=== PATIENT | male | born 1945 | race Caucasian/White ===

== ENCOUNTER 2018-11-02 08:04 | Day surgery (SDC) | payer OTHER ==
[~2018-11-02] VITALS: Ht 170.2 cm; Wt 65.0 kg
[~2018-11-02 08:04] MED LIST: ACET325 PO; ALBU4 PO; ALEN70 PO; ASCO500 PO; ASPI81CH; ASPI81CH PO; ATEN25; ATOR20; ATOR40TA PO; BUDE6HFA; BUDE6HFA INH; CALCIUM + D3 E1 EACH PO; CHOL10002 PO; CYAN500 PO; D3-20002000 UNIT; METO25 PO; ONDA4 PO; OXYB5 PO; OXYC5 PO; Omeprazole20 M1; Omeprazole20 M1 PO; Pulmicort Flex90 MCG; Pyridium200 MG PO; Super Calcium600 MG; TIOT18; TIOT18 INH; Ventolin Soln3 ML INH; Ventolin5 MG/1 ML INH; WARF2; WARF3; WARF5 PO; WARF7.5 PO; XARELTO20 MG
[2018-11-02] MEDS ORDERED: TIOT18 (08:50)
--- NOTE | 2018-11-02 11:03 | NUR ---
11/02/18 1103 Nahomi Grace V INJECTED 9CC NS INTO 12MM POLYP.
== END 2018-11-02 11:47 | disposition home or self-care (01) ==
LOC: ORSCSDS 08:04
PROVIDERS: Internal Medicine Gastroenterology
PROC: 0DBL8ZX Excision of Transverse Colon, Via Natural or Artificial Opening Endoscopic, Diagnostic (ICD-10-PCS; principal; 2018-11-02 09:45)
DX: Z85.048 Personal history of other malignant neoplasm of rectum, rectosigmoid junction, and anus (principal); D12.3 Benign neoplasm of transverse colon; K57.30 Diverticulosis of large intestine without perforation or abscess without bleeding; Z93.3 Colostomy status; Z86.010 Personal history of colon polyps; I10 Essential (primary) hypertension; E78.5 Hyperlipidemia, unspecified; J44.9 Chronic obstructive pulmonary disease, unspecified; I48.91 Unspecified atrial fibrillation; F17.210 Nicotine dependence, cigarettes, uncomplicated; I25.10 Atherosclerotic heart disease of native coronary artery without angina pectoris; Z95.1 Presence of aortocoronary bypass graft; Z79.01 Long term (current) use of anticoagulants; Z79.82 Long term (current) use of aspirin; Z79.899 Other long term (current) drug therapy
CPT/HCPCS: 88305; J2704; J7120

== ENCOUNTER 2018-12-08 18:37 | Emergency (ER) | payer OTHER ==
[~2018-12-08] VITALS: Ht 167.6 cm; Wt 67.6 kg
[~2018-12-08 18:37] MED LIST changes: -ACET325 PO; -ASCO500 PO; -ASPI81CH PO; -ATOR40TA PO; -BUDE6HFA INH; -CALCIUM + D3 E1 EACH PO; -CHOL10002 PO; -CYAN500 PO; -METO25 PO; -Ventolin5 MG/1 ML INH; -XARELTO20 MG
[2018-12-08 19:44] LABS: BASOPHILS ABSOLUTE AUTO 0.03 K/mm3 (0.00-0.23); BASOPHILS PERCENT AUTO 0 % (0-2); EOSINOPHILS ABSOLUTE AUTO 0.22 K/mm3 (0.00-0.68); EOSINOPHILS PERCENT AUTO 2 % (0-6); Hematocrit 28.7 % (37.0-53.0); Hemoglobin 8.6 g/dL (13.5-17.5); IMMATURE GRAN ABSOLUTE AUTO 0.09 K/mm3 (0.00-0.10); IMMATURE GRAN PERCENT AUTO 1 % (0-1); LYMPHOCYTES ABSOLUTE AUTO 1.48 K/mm3 (0.84-5.20); LYMPHOCYTES PERCENT AUTO 13 % (21-46); MONOCYTES ABSOLUTE AUTO 0.75 K/mm3 (0.16-1.47); MONOCYTES PERCENT AUTO 7 % (4-13); Mean Corpuscular HGB 22.5 pg (26.0-34.0); Mean Corpuscular Volume 75 fL (80-100); Mean Platelet Volume 9.8 fL (9.1-12.4); NEUTROPHILS ABSOLUTE AUTO 8.77 K/mm3 (1.96-9.15); NEUTROPHILS PERCENT AUTO 77 % (41-73); Platelet Count 398 K/mm3 (150-400); RDW Coefficient Variation 17.5 % (11.7-14.2); RDW Standard Deviation 46.8 fL (35.1-46.3); Red Blood Cell Count 3.82 M/mm3 (4.30-5.90); White Blood Cell Count 11.34 K/mm3 (4.00-11.30)
[2018-12-08 20:11] LABS: Alanine Aminotransfer (ALT/SGP 12 U/L (12-78); Albumin, Blood 2.9 g/dL (3.4-5.0); Albumin/Globulin Ratio 0.7 (0.8-1.8); Alk Phos 75 U/L (50-136); Anion Gap 12 mmol/L (6-16); Aspartate Aminotrans (AST/SGOT 21 U/L (12-37); Bilirubin, Total 0.5 mg/dL (0.1-1.0); Blood Urea Nitrogen 8 mg/dL (8-24); Bun/Creatinine Ratio 10.5 (12.0-20.0); CO2, Blood 23 mmol/L (21-32); Calcium, Blood 8.4 mg/dL (8.5-10.1); Chloride, Blood 89 mmol/L (98-108); Creatinine, Blood 0.76 mg/dL (0.60-1.20); Globulin, Blood 4.1 g/dL (2.2-4.0); Glomerular Filtration Rate >60 (60-); Glucose, Blood 81 mg/dL (70-99); Potassium, Blood 3.7 mmol/L (3.5-5.5); Sodium, Blood 124 mmol/L (136-145); Troponin I 0.335 ng/mL (0.000-0.040)
[2018-12-08] MEDS ORDERED: CEPH500 PO (21:43)
== END 2018-12-08 21:53 | disposition home or self-care (01) ==
LOC: ER 18:37
PROVIDERS: Emergency Medicine
DX: N39.0 Urinary tract infection, site not specified (principal); D64.9 Anemia, unspecified; K92.2 Gastrointestinal hemorrhage, unspecified; E87.1 Hypo-osmolality and hyponatremia; F17.200 Nicotine dependence, unspecified, uncomplicated; Z88.2 Allergy status to sulfonamides; Z88.0 Allergy status to penicillin; Z79.82 Long term (current) use of aspirin; Z79.899 Other long term (current) drug therapy
CPT/HCPCS: 36415; 71046; 80053; 82272; 83880; 84484; 85025; 86850; 86900; 86901; 86923; 93005; 93010; 99284-25

== ENCOUNTER 2018-12-09 20:37 | Inpatient (IN) | payer MEDICARE ==
[~2018-12-09] VITALS: Ht 167.6 cm; Wt 61.6 kg
[~2018-12-09 20:37] MED LIST changes: +CEPH500 PO
[2018-12-09 21:10] LABS: BASOPHILS ABSOLUTE AUTO 0.01 K/mm3 (0.00-0.23); BASOPHILS PERCENT AUTO 0 % (0-2); EOSINOPHILS ABSOLUTE AUTO 0.02 K/mm3 (0.00-0.68); EOSINOPHILS PERCENT AUTO 0 % (0-6); Hematocrit 26.5 % (37.0-53.0); Hemoglobin 7.9 g/dL (13.5-17.5); IMMATURE GRAN ABSOLUTE AUTO 0.17 K/mm3 (0.00-0.10); IMMATURE GRAN PERCENT AUTO 2 % (0-1); LYMPHOCYTES ABSOLUTE AUTO 0.77 K/mm3 (0.84-5.20); LYMPHOCYTES PERCENT AUTO 8 % (21-46); MONOCYTES ABSOLUTE AUTO 0.53 K/mm3 (0.16-1.47); MONOCYTES PERCENT AUTO 5 % (4-13); Mean Corpuscular HGB Conc 29.8 g/dL (31.5-36.5); Mean Corpuscular Volume 77 fL (80-100); Mean Platelet Volume 9.8 fL (9.1-12.4); NEUTROPHILS ABSOLUTE AUTO 8.76 K/mm3 (1.96-9.15); NEUTROPHILS PERCENT AUTO 85 % (41-73); Platelet Count 375 K/mm3 (150-400); RDW Coefficient Variation 17.4 % (11.7-14.2); RDW Standard Deviation 48.9 fL (35.1-46.3); Red Blood Cell Count 3.43 M/mm3 (4.30-5.90); White Blood Cell Count 10.26 K/mm3 (4.00-11.30)
[2018-12-09 21:25] LABS: Albumin, Blood 2.7 g/dL (3.4-5.0); Albumin/Globulin Ratio 0.7 (0.8-1.8); Bilirubin, Total 0.5 mg/dL (0.1-1.0); Bun/Creatinine Ratio 14.3 (12.0-20.0); Calcium, Blood 7.9 mg/dL (8.5-10.1); Creatinine, Blood 1.26 mg/dL (0.60-1.20); Globulin, Blood 3.8 g/dL (2.2-4.0); Potassium, Blood 4.1 mmol/L (3.5-5.5); Total Protein, Blood 6.5 g/dL (6.4-8.2); Troponin I 0.193 ng/mL (0.000-0.040)
[2018-12-10 00:15] LABS: Source, Urine Clean Catch
[2018-12-10 00:19] LABS: Appearance, Urine Clear (Clear); Bilirubin, Urine Neg (Neg); Blood, Urine Neg (Neg); Color, Urine Amber (P-Yellow); Glucose Qualitative, Urine Neg (Neg); Ketones, Urine 2+ (Neg); Leukocyte Esterase, Urine 1+ (Neg); Nitrite, Urine Neg (Neg); Protein, Urine 2+ (Neg); Urobilinogen, Urine NORM (Normal)
[2018-12-10 00:25] LABS: Bacteria Many /hpf; Red Blood Cells, Urine 0-2 /hpf (0-2); Squamous Epithelial Cells Few /hpf (Few)
[2018-12-10 00:26] LABS: Hyaline Casts 0-2 /lpf (0-2)
[2018-12-10 02:43] LABS: BASOPHILS ABSOLUTE AUTO 0.02 K/mm3 (0.00-0.23); BASOPHILS PERCENT AUTO 0 % (0-2); EOSINOPHILS ABSOLUTE AUTO 0.07 K/mm3 (0.00-0.68); EOSINOPHILS PERCENT AUTO 1 % (0-6); Hematocrit 24.5 % (37.0-53.0); Hemoglobin 7.3 g/dL (13.5-17.5); IMMATURE GRAN ABSOLUTE AUTO 0.08 K/mm3 (0.00-0.10); IMMATURE GRAN PERCENT AUTO 1 % (0-1); LYMPHOCYTES ABSOLUTE AUTO 1.45 K/mm3 (0.84-5.20); LYMPHOCYTES PERCENT AUTO 16 % (21-46); MONOCYTES PERCENT AUTO 8 % (4-13); Mean Corpuscular HGB 22.9 pg (26.0-34.0); Mean Corpuscular HGB Conc 29.8 g/dL (31.5-36.5); Mean Corpuscular Volume 77 fL (80-100); Mean Platelet Volume 9.7 fL (9.1-12.4); NEUTROPHILS ABSOLUTE AUTO 6.86 K/mm3 (1.96-9.15); NEUTROPHILS PERCENT AUTO 75 % (41-73); Platelet Count 340 K/mm3 (150-400); RDW Coefficient Variation 17.4 % (11.7-14.2); RDW Standard Deviation 48.8 fL (35.1-46.3); Red Blood Cell Count 3.19 M/mm3 (4.30-5.90); White Blood Cell Count 9.18 K/mm3 (4.00-11.30)
[2018-12-10 03:10] LABS: Anion Gap 10 mmol/L (6-16); Blood Urea Nitrogen 16 mg/dL (8-24); Bun/Creatinine Ratio 15.1 (12.0-20.0); CO2, Blood 22 mmol/L (21-32); Calcium, Blood 7.7 mg/dL (8.5-10.1); Chloride, Blood 98 mmol/L (98-108); Creatinine, Blood 1.06 mg/dL (0.60-1.20); Glomerular Filtration Rate >60 (60-); Glucose, Blood 83 mg/dL (70-99); Potassium, Blood 4.2 mmol/L (3.5-5.5); Sodium, Blood 130 mmol/L (136-145)
--- NOTE | 2018-12-10 04:55 | NUR ---
SASH ASSEMBLER SUMMARY NEW ADMIT FROM THE ED TONIGHT. PT AAOX4 AND PLEASANT. PT REPORTS HAVING A FEW SYNCOPAL EPISODES WHILE ON A CAMPING TRIP BEFORE COMING TO THE HOSPITAL. PT NOT WANTING TO AMBULATE AT ALL, STATING "I'VE HAD SOME BALANCE ISSUES FOR SEVERAL DAYS NOW". PLACED ON TELE, SR 70'S WITH A 1ST DEG BLOCK PER PATTERN DESIGNER. PT SBP 80-90'S, THERE IS CONCERN THAT THIS IS CAUSED BY A RECENT INCREASE IN THE PT'S METOPROLOL DOSE MADE BY HIS PCP. SKIN DRY IN AREAS, ESPECIALLY HIS BLE. PT REPORTS HAVING PSORIASIS. NO WOUNDS NOTED BY THIS RN, HOWEVER PT WOULD ONLY ALLOW A LIMITED ASSESSMENT OF HIS SKIN. PT STATED "THEY CHECKED ALL THIS DOWN IN THE ER, I JUST WANT TO GET SOME SLEEP TONIGHT". PT HAS COLOSTOMY BAG THAT HE MANAGES HIMSELF. ASIDE FROM BP, OTHER VSS. DR OJEDA IS AWARE OF BP. WILL CONTINUE TO MONITOR.
[2018-12-10 10:36] LABS: Hematocrit 25.6 % (37.0-53.0); Hemoglobin 7.6 g/dL (13.5-17.5)
--- NOTE | 2018-12-10 10:42 | NUR ---
PT FOOT PAIN/LOW H&H DR. MARTINEZ CALLED FOR PAIN MEDICATION PER PT REQUEST DUE TO 8/[address] MARTINEZ ORDERED ULTRAM. ALSO ORDERED STAT H&H LABS DUE TO LOW LEVELS. 1030 RESULTS SHOWED HGB 7.6. NOTIFIED. DR. MARTINEZ INSTRUCTED TO CONTINUE TO WATCH FOR POSSIBLE BLACK STOOLS & SEND SAMPLE WHEN AVAILABLE. NO OTHER CHANGES IN ASSESSMENT AT THIS TIME.
[2018-12-10 11:07] LABS: Percent Saturation 8.3 % (20.0-50.0)
--- NOTE | 2018-12-10 14:36 | NUR ---
OSTOMY CHANGED OSTOMY DEVICE CHANGED. SKIN CLEAN & INTACT.
--- NOTE | 2018-12-10 17:55 | NUR ---
SHIFT SUMMARY NO CHANGES IN ASSESSMENT AT THIS TIME. PT CURRENTLY RECEIVING 1 UNIT OF PRBC. TOLERATING WELL. PT HAD ECHOCARDIOGRAM & CAROTID DUPLEX COMPLETED TODAY. PT SEEN BY TWIST MAKER DR. CHURCHILL THIS EVENING. DR. CHURCHILL STATED HE WOULD CHECK IN WITH PT TOMORROW. WILL CONTINUE TO MONITOR UNTIL TURNOVER IS COMPLETE. VSS.
--- NOTE | 2018-12-10 23:37 | NUR ---
CHANGE IN RHYTHM/RATE *LATE ENTRY* PCU RECEIVING OPERATOR CALLED AROUND 2049 TO NOTIFY ME PT HAD A 4.5 SEC PAUSE @2037. HOSPITALIST DAMASO WAS NOTIFIED & INFORMED ME TO PASS INFO TO ONCOMING DAY SHIFT NURSE TO CALL CANNONEER & INFORM THEM OF PAUSE. WILL CONTINUE TO MONITOR PT.
--- NOTE | 2018-12-11 00:57 | NUR ---
CHANGE IN RHYTHM/RATE NOTIFIED @0024 BY PCU UTILIZATION MANAGEMENT UM NURSE THAT PT HAD A 5.2 SEC PAUSE, TELE UTILIZATION MANAGEMENT UM NURSE STATED BEFORE & AFTER PAUSE PT RHYTHM WAS NSR W/PAC'S & HR IN THE 80'S. ASSESSED PT & HE WAS ASYMPTOMATIC, JUST REPORTED PAIN IN R. FOOT. NOTIFIED DR. OJEDA THIS WAS PTS 2ND PAUSE OF NIGHT & NO NEW ORDERS GIVEN, JUST INFORMED TO MONITOR PT.
[2018-12-11 05:37] LABS: BASOPHILS ABSOLUTE AUTO 0.05 K/mm3 (0.00-0.23); BASOPHILS PERCENT AUTO 1 % (0-2); EOSINOPHILS ABSOLUTE AUTO 0.11 K/mm3 (0.00-0.68); EOSINOPHILS PERCENT AUTO 1 % (0-6); Hematocrit 27.2 % (37.0-53.0); Hemoglobin 8.4 g/dL (13.5-17.5); IMMATURE GRAN ABSOLUTE AUTO 0.06 K/mm3 (0.00-0.10); IMMATURE GRAN PERCENT AUTO 1 % (0-1); LYMPHOCYTES ABSOLUTE AUTO 1.52 K/mm3 (0.84-5.20); LYMPHOCYTES PERCENT AUTO 14 % (21-46); MONOCYTES ABSOLUTE AUTO 0.72 K/mm3 (0.16-1.47); MONOCYTES PERCENT AUTO 7 % (4-13); Mean Corpuscular HGB 24.1 pg (26.0-34.0); Mean Corpuscular HGB Conc 30.9 g/dL (31.5-36.5); Mean Corpuscular Volume 78 fL (80-100); Mean Platelet Volume 9.7 fL (9.1-12.4); NEUTROPHILS PERCENT AUTO 78 % (41-73); Platelet Count 388 K/mm3 (150-400); RDW Coefficient Variation 17.4 % (11.7-14.2); RDW Standard Deviation 49.1 fL (35.1-46.3); Red Blood Cell Count 3.49 M/mm3 (4.30-5.90); White Blood Cell Count 10.96 K/mm3 (4.00-11.30)
[2018-12-11 06:02] LABS: Cholesterol 86 mg/dL (50-200); HDL Cholesterol 29 mg/dL (>39); LDL/HDL RATIO 1.2; Low Density Lipoprotein Chol 34 mg/dL (0-110); Triglycerides 113 mg/dL (30-160); Very Low Density Lipoprot Chol 22 mg/dL (6-32)
--- NOTE | 2018-12-11 06:33 | NUR ---
SHIFT SUMMARY PT SLEPT WELL T/O NIGHT. AOX4. VSS. DENIES N/V/D. REPORTS CONSTANT SHARP PAIN IN BILATERAL FEET, STATES IT'S FROM FALL, MEDICATED 1X W/TYLENOL & 1X W/ULTRAM PER ORDERS. RECIEVED 1U PRBC LAST NIGHT, NO REACTIONS NOTICED. PER PCU DATA WAREHOUSE SPECIALIST, PT HAD 2 RHYTHM PAUSES, READ PREVIOUS NOTES. DENIES ANY CHEST PAIN OR PALPATIONS. HAS BEEN ON BEDREST, CONTINENT OF URINE & COLOSTOMY IS INTACT & DRAINING FORMED BROWN STOOL. CALL LIGHT IN REACH, YET PT YELLS OUT IF HE NEEDS HELP W/SOMETHING.
[2018-12-11 12:48] LABS: Stool Occult Blood Guaiac 1 Neg (Neg)
[2018-12-11] MEDS ORDERED: CEPH500 PO (15:08)
--- NOTE | 2018-12-11 16:24 | NUR ---
PATIENT DISCHARGE THE PATIENT WAS DISCHARGED HOME WITH HIS FAMILY, AFTER DISCHARGE INSTRUCTIONS WERE GIVEN TO THE PATIENT. THE WAS INSTRUCTED TO FOLLOW UP WITH HIS V/A DOCTOR AND TO AUDIT CLERK HIS MEDICATIONS. THE PATIENT LEFT THE HOSPITAL WITHOUT CONCERN OR COMPLAINT.
== END 2018-12-11 16:00 | disposition home or self-care (01) | DRG 68 ==
LOC: ER 20:37 → MEDS 20:38 → ENPENDDIS 12-11 14:36 → MEDS 12-11 16:00
PROVIDERS: Emergency Medicine; Family Medicine; Nurse Practitioner Acute Care; ADMIT Hospitalist
PROC: 30233N1 Transfusion of Nonautologous Red Blood Cells into Peripheral Vein, Percutaneous Approach (ICD-10-PCS; principal; 2018-12-10)
DX: I65.23 Occlusion and stenosis of bilateral carotid arteries (principal); I67.81 Acute cerebrovascular insufficiency; E87.1 Hypo-osmolality and hyponatremia; R55 Syncope and collapse; D50.9 Iron deficiency anemia, unspecified; R79.89 Other specified abnormal findings of blood chemistry; F17.210 Nicotine dependence, cigarettes, uncomplicated; I48.91 Unspecified atrial fibrillation; I95.9 Hypotension, unspecified; J44.9 Chronic obstructive pulmonary disease, unspecified; I25.10 Atherosclerotic heart disease of native coronary artery without angina pectoris; Z95.1 Presence of aortocoronary bypass graft; Z85.038 Personal history of other malignant neoplasm of large intestine; Z93.3 Colostomy status; Z79.82 Long term (current) use of aspirin
CPT/HCPCS: 36415; 36430; 70450; 71045; 80048; 80053; 80061; 81001; 82272; 82607; 82728; 82746; 83540; 83550; 83605; 84484; 85014; 85018; 85025; 86850; 86900; 86901; 86923; 87040; 87086; 93005; 93010; 93306; 93880; 94640; 94760; 96365; 99285-25; A9270; G0378; J0696; J7030; J7040; P9016

== ENCOUNTER 2019-01-17 17:27 | Inpatient (IN) | payer OTHER, MEDICARE ==
[~2019-01-17] VITALS: Ht 165.1 cm; Wt 57.5 kg
[2019-01-17] MEDS ORDERED: Calcium Carbon650 MG PO (17:47)
[2019-01-17] MEDS ORDERED: CYAN500 PO (17:48)
[2019-01-17] MEDS ORDERED: Aspirin EC81 MG PO (17:48)
[2019-01-17] MEDS ORDERED: CHOL10002 PO (17:48)
[2019-01-17] MEDS ORDERED: BUDE6HFA INH (17:49)
[2019-01-17] MEDS ORDERED: ATOR40TA PO (17:49)
[2019-01-17] MEDS ORDERED: METO50ER PO (17:50)
[2019-01-17] MEDS ORDERED: ASCO500 PO (17:50)
[2019-01-17] MEDS ORDERED: XARELTO1 EACH PO (17:51)
[2019-01-17] MEDS ORDERED: ALBU2.5V5 NEB (17:51)
[2019-01-17] MEDS ORDERED: ACET325 PO (17:51)
[2019-01-17] MEDS ORDERED: TIOT18 INH (17:52)
[2019-01-17] MEDS ORDERED: Ferrous Sulfat325 M2 PO (17:53)
[2019-01-17] MEDS ORDERED: ALBU90OI61 INH (17:54)
[2019-01-17 17:55] LABS: BASOPHILS ABSOLUTE AUTO 0.01 K/mm3 (0.00-0.23); BASOPHILS PERCENT AUTO 0 % (0-2); EOSINOPHILS ABSOLUTE AUTO 0.07 K/mm3 (0.00-0.68); EOSINOPHILS PERCENT AUTO 1 % (0-6); Hematocrit 22.5 % (37.0-53.0); Hemoglobin 6.6 g/dL (13.5-17.5); IMMATURE GRAN ABSOLUTE AUTO 0.04 K/mm3 (0.00-0.10); IMMATURE GRAN PERCENT AUTO 1 % (0-1); LYMPHOCYTES ABSOLUTE AUTO 1.11 K/mm3 (0.84-5.20); LYMPHOCYTES PERCENT AUTO 17 % (21-46); MONOCYTES ABSOLUTE AUTO 0.54 K/mm3 (0.16-1.47); MONOCYTES PERCENT AUTO 8 % (4-13); Mean Corpuscular HGB 24.4 pg (26.0-34.0); Mean Corpuscular HGB Conc 29.3 g/dL (31.5-36.5); Mean Corpuscular Volume 83 fL (80-100); Mean Platelet Volume 9.3 fL (9.1-12.4); NEUTROPHILS ABSOLUTE AUTO 4.97 K/mm3 (1.96-9.15); NEUTROPHILS PERCENT AUTO 74 % (41-73); Platelet Count 288 K/mm3 (150-400); RDW Coefficient Variation 23.9 % (11.7-14.2); RDW Standard Deviation 71.8 fL (35.1-46.3); Red Blood Cell Count 2.71 M/mm3 (4.30-5.90); White Blood Cell Count 6.74 K/mm3 (4.00-11.30)
[2019-01-17] MEDS ORDERED: LISI5 PO (17:55)
[2019-01-17] MEDS ORDERED: MIRT15 PO (17:55)
[2019-01-17] MEDS ORDERED: LIDO700A20 TOP (17:56)
[2019-01-17] MEDS ORDERED: TAMS.4ER PO (17:56)
[2019-01-17] MEDS ORDERED: ANTI-ITCH LOTI222 ML TOP (17:57)
[2019-01-17] MEDS ORDERED: TRAM50 PO (17:58)
[2019-01-17 18:05] LABS: Calcium, Ionized (POC) 1.09 mmol/L (1.10-1.46); Chloride (POC) 100 mmol/L (98-108); Creatinine (POC) 0.6 mg/dL (0.8-1.3); Glucose (ISTAT POC) 92 mg/dL (70-99); Hemoglobin (POC) 7.1 g/dL (13.5-17.5); Potassium (POC) 4.3 mmol/L (3.5-5.5); Sodium (POC) 132 mmol/L (135-148); Total CO2 (POC) 20 mmol/L (21-32)
[2019-01-17 18:17] LABS: Alanine Aminotransfer (ALT/SGP 8 U/L (12-78); Albumin, Blood 1.9 g/dL (3.4-5.0); Albumin/Globulin Ratio 0.7 (0.8-1.8); Alk Phos 52 U/L (50-136); Anion Gap 4 mmol/L (6-16); Aspartate Aminotrans (AST/SGOT 9 U/L (12-37); Bilirubin, Total 0.2 mg/dL (0.1-1.0); Blood Urea Nitrogen 13 mg/dL (8-24); Bun/Creatinine Ratio 19.5 (12.0-20.0); CO2, Blood 25 mmol/L (21-32); Calcium, Blood 7.2 mg/dL (8.5-10.1); Chloride, Blood 107 mmol/L (98-108); Creatinine, Blood 0.67 mg/dL (0.60-1.20); Globulin, Blood 2.7 g/dL (2.2-4.0); Glomerular Filtration Rate >60 (60-); Glucose, Blood 95 mg/dL (70-99); Potassium, Blood 4.3 mmol/L (3.5-5.5); Sodium, Blood 136 mmol/L (136-145); Total Protein, Blood 4.6 g/dL (6.4-8.2)
[2019-01-17 19:13] LABS: Hematocrit 21.9 % (37.0-53.0); Hemoglobin 6.5 g/dL (13.5-17.5)
[2019-01-17 19:27] LABS: International Normalized Ratio 1.06; Prothrombin Time Results 11.2 Sec (9.7-11.5)
--- NOTE | 2019-01-17 19:40 | NUR ---
SHIFT ASSESSMENT: PT TRANSFERRED FROM PCU TO ICU16 VIA BED WITH 2 RN'S AT BEDSIDE. PT A&O X3. DENIES ANY PAIN. C/O BEING HUNGRY. LS COARSE WITH CRACKLES T/O THAT CLEARS UP WITH A COUGH. PT HAS PRODUCTIVE COUGH, BUT SWALLOWS IT. BIOX 100% ON 2L N/C. HEART SOUNDS S1 AND S2 AUSCULTATED WITH MONITOR SHOWING NSR WITH HR 82. SKIN PALE, WARM AND DRY. PPP BILAT AT 1+ AND DP 1+ BILAT. L TEAROOM HOST FROM PREVIOS INJURY. RADIAL PULSES 2+ BILAT. 20G IV RFA WITH PRBC'S RUNNING AT 125CC/HR. 20G LAC FIELD START WITH PROTONIX RUNNING AT 10CC/HR=8MG/HR. ABD R/S WITH HYPER BT X4. LUQ COLOSTOMY WITH DARK BLACK TARRY STOOL. COLOSTOMY DRESSING AND APPLIANCE CHANGED. MUCOUSY BROWN PER RECTUM. PT STATES THAT THE MUCOUS IS NEW OF YESTERDAY. VOIDS PER UNRINAL. VSS.
--- NOTE | 2019-01-17 22:14 | NUR ---
DR. ANGEL ORTIZ IN TO SEE PT. DR. ORTIZ IS PLANNING ON SCOPING TOMORROW LATE AFTERNOON. ORDERS TO KEEP PT FULL LIQUID DIET TILL AFTER BREAKFAST, THEN CHANGE HIM TO WATER ONLY TILL 1400. AT 1400, HE WILL BE NPO.
[2019-01-17] MEDS ORDERED: OMEP20ER PO (22:31)
--- NOTE | 2019-01-18 01:16 | NUR ---
SYNCOPAL EPISODE: PT LYING IN BED UNRESPOSIVE. BP 50'S/30'S, HR 74. STERNAL RUB DONE AND ARROYO VOICE TO YELL AT PT. AFTER ABOUT 45 SECONDS, PT FINALLY GRUMBLED "WHAT AT ME". ASKED PT HOW HE FEELS, HE STATES HE FEELS WEAK. COLOSTOMY PUT OUT 325 OF CLOTTED MAROON STOOL. FLUID BOLUS GIVEN. PT MORE RESPONSIVE. LAB COMING TO DRAW BLOOD.
[2019-01-18 01:39] LABS: Hematocrit 19.6 % (37.0-53.0)
--- NOTE | 2019-01-18 05:48 | NUR ---
SHIFT SUMMARY: PT HAS REQUIRED 4 UNITS PRBS THROUGHOUT THE NIGHT, HAS HAD >1500CC LIQUID MAROON STOOL FROM COLOSTMY. DR. ORTIZ IS AWARE AND PLANS ON SCOPING PT AT 0730 THIS AM. PT HAD A HYPOTENSIVE/SYCOPAL EPISODE EARLIER IN THE SHIFT. A FLUID BOLUS WAS GIVEN WITH GOOD RESPONSE.
[2019-01-18 06:51] LABS: BASOPHILS ABSOLUTE AUTO 0.01 K/mm3 (0.00-0.23); BASOPHILS PERCENT AUTO 0 % (0-2); EOSINOPHILS ABSOLUTE AUTO 0.04 K/mm3 (0.00-0.68); EOSINOPHILS PERCENT AUTO 1 % (0-6); Hematocrit 18.5 % (37.0-53.0); IMMATURE GRAN ABSOLUTE AUTO 0.04 K/mm3 (0.00-0.10); IMMATURE GRAN PERCENT AUTO 1 % (0-1); LYMPHOCYTES ABSOLUTE AUTO 1.57 K/mm3 (0.84-5.20); LYMPHOCYTES PERCENT AUTO 24 % (21-46); MONOCYTES ABSOLUTE AUTO 0.58 K/mm3 (0.16-1.47); MONOCYTES PERCENT AUTO 9 % (4-13); Mean Corpuscular HGB 28.4 pg (26.0-34.0); Mean Corpuscular HGB Conc 32.4 g/dL (31.5-36.5); Mean Platelet Volume 9.5 fL (9.1-12.4); NEUTROPHILS ABSOLUTE AUTO 4.39 K/mm3 (1.96-9.15); NEUTROPHILS PERCENT AUTO 66 % (41-73); Platelet Count 161 K/mm3 (150-400); RDW Coefficient Variation 18.3 % (11.7-14.2); RDW Standard Deviation 58.9 fL (35.1-46.3); Red Blood Cell Count 2.11 M/mm3 (4.30-5.90); White Blood Cell Count 6.63 K/mm3 (4.00-11.30)
[2019-01-18 06:57] LABS: Mean Corpuscular Volume 88 fL (80-100)
[2019-01-18 07:17] LABS: Anion Gap 8 mmol/L (6-16); Blood Urea Nitrogen 16 mg/dL (8-24); Bun/Creatinine Ratio 23.3 (12.0-20.0); CO2, Blood 19 mmol/L (21-32); Calcium, Blood 5.6 mg/dL (8.5-10.1); Chloride, Blood 114 mmol/L (98-108); Creatinine, Blood 0.69 mg/dL (0.60-1.20); Glomerular Filtration Rate >60 (60-); Glucose, Blood 112 mg/dL (70-99); Potassium, Blood 4.3 mmol/L (3.5-5.5); Sodium, Blood 141 mmol/L (136-145)
--- NOTE | 2019-01-18 07:30 | NUR ---
BEGINNING OF SHIFT Assumed care of pt at 0700 with Karis CALIX. Bedside report received from Adilene CALIX. Pt drowsy, arouses easily to verbal stimulus. A&O x 2. Able to follow directions. SpO2 90% or greater, [address] Sinus rhtyhm with PACs and PVCs. Rate 78 with approx 8 PVCs per minute. Hypotensive. NS bolus infusing. Results of 0632 blood draw notified to Dr Lin at 0705. Orders received for 2 units PRBCs. Critical calcium notified to Dr Sims at 0720, provider updated on pt condition. Orders received for IV calcium gluconate and melt supervisor consult. Dr Sims at bedside at 0725. This RN called Dr Brewer at 0725 to notify of consult. Provider states she will be in to see pt shortly. NS bolus complete at 0730. SBP 75-85, DBP 35-45. Orders receivied for additional bolus from Dr Sims. Awaiting blood from blood bank. Karis CALIX at bedside for PICC placement. Day surgery staff in room preparing for endoscopy.
--- NOTE | 2019-01-18 07:40 | NUR ---
CENTRAL LINE Unable to obtain PICC line access. Dr Sims aware. Provider at bedside for central line placement.
--- NOTE | 2019-01-18 08:00 | NUR ---
DR BREWER AT BEDSIDE Dr Brewer at bedside at [address] Cordis central line. Provider states plan for mass transfusion. Dr Brewer aware that levophed has not been started. Plan for BP to increase with transfusion. Verbal order to stop NS bolus. Pt has received about [address] Sims remains at bedside.
[2019-01-18 09:02] LABS: BASOPHILS ABSOLUTE AUTO 0.05 K/mm3 (0.00-0.23); BASOPHILS PERCENT AUTO 0 % (0-2); EOSINOPHILS ABSOLUTE AUTO 0.02 K/mm3 (0.00-0.68); EOSINOPHILS PERCENT AUTO 0 % (0-6); Hematocrit 33.7 % (37.0-53.0); Hemoglobin 11.1 g/dL (13.5-17.5); IMMATURE GRAN ABSOLUTE AUTO 0.21 K/mm3 (0.00-0.10); IMMATURE GRAN PERCENT AUTO 2 % (0-1); LYMPHOCYTES ABSOLUTE AUTO 3.14 K/mm3 (0.84-5.20); LYMPHOCYTES PERCENT AUTO 23 % (21-46); MONOCYTES ABSOLUTE AUTO 1.08 K/mm3 (0.16-1.47); MONOCYTES PERCENT AUTO 8 % (4-13); Mean Corpuscular HGB 29.5 pg (26.0-34.0); Mean Corpuscular HGB Conc 32.9 g/dL (31.5-36.5); Mean Corpuscular Volume 90 fL (80-100); Mean Platelet Volume 10.1 fL (9.1-12.4); NEUTROPHILS ABSOLUTE AUTO 9.02 K/mm3 (1.96-9.15); NEUTROPHILS PERCENT AUTO 67 % (41-73); NRBC ABSOLUTE 0.02 K/mm3 (0.00-0.02); NRBC Auto 0.1 /100 WBC (0.0-0.2); Platelet Count 149 K/mm3 (150-400); RDW Coefficient Variation 16.1 % (11.7-14.2); RDW Standard Deviation 52.7 fL (35.1-46.3); Red Blood Cell Count 3.76 M/mm3 (4.30-5.90); White Blood Cell Count 13.52 K/mm3 (4.00-11.30)
[2019-01-18 09:17] LABS: International Normalized Ratio 1.19; Prothrombin Time Results 12.4 Sec (9.7-11.5)
[2019-01-18 09:25] LABS: Alanine Aminotransfer (ALT/SGP 8 U/L (12-78); Albumin, Blood 1.1 g/dL (3.4-5.0); Albumin/Globulin Ratio 0.6 (0.8-1.8); Alk Phos 30 U/L (50-136); Anion Gap 10 mmol/L (6-16); Aspartate Aminotrans (AST/SGOT 8 U/L (12-37); Bilirubin, Total 1.6 mg/dL (0.1-1.0); Blood Urea Nitrogen 18 mg/dL (8-24); Bun/Creatinine Ratio 24.5 (12.0-20.0); CO2, Blood 17 mmol/L (21-32); Chloride, Blood 112 mmol/L (98-108); Creatinine, Blood 0.74 mg/dL (0.60-1.20); Globulin, Blood 1.8 g/dL (2.2-4.0); Glomerular Filtration Rate >60 (60-); Glucose, Blood 157 mg/dL (70-99); Potassium, Blood 5.1 mmol/L (3.5-5.5); Sodium, Blood 139 mmol/L (136-145); Total Protein, Blood 2.9 g/dL (6.4-8.2)
--- NOTE | 2019-01-18 09:30 | NUR ---
UPDATE Cordis line placed. Mass transfusion initiated. Total of 6 units PRBC, 4 units FFP and 1 unit platelets started. Emergent IO placed in LLE by Dr Stern and Livier ARROYO. Levophed titrated from 2 mcg/min to 20 mcg/min to maintain MAP greater than 65. Vasopressin on standby. Pt intubated at 0830 with 7.5 cm ETT tube, 23 cm at lip. Pt received 20 mg Rocuronium and 5 mg Etomidate for intubation. Placed on ventilator AC 16, vT 400, FiO2 100%, PEEP 5. Pt's spouse updated on condition. Per Dr Lin and Dr Brewer, pt stable enough for endoscopy.
--- NOTE | 2019-01-18 10:15 | NUR ---
EMERGENT CASE PER DOCTOR. ICU RNS DOING MULTIPLE PROCEDURES. PATIENT DENIES METAL IN BODY VS WTIH LOW BP. GETTING MASSIVE TRANSFUSION SEE ICU RNS CHARTING
--- NOTE | 2019-01-18 10:27 | NUR ---
01/18/19 1027 Saulo Berumen Bite Block Placed3-LEAD EKG REVIEWED WITH PHYSICIAN PRIOR TO START OF PROCEDURE.History, Chart, Medications and Allergies reviewed before start of procedure.MONITOR INTACT WITH CONTINUOUS PULSE OXIMETRY AND INTERMITTENT BP.O2 VIA N/C INTACT THROUGHOUT SEDATION/PROCEDURE. SEE ICU RNS CHARTING FOR MEDICATIONS AND VSS.
--- NOTE | 2019-01-18 10:27 | NUR ---
Received call from ICU nurse Tori and reports family would benefit from a palliative care visit. Arrived to ICU and discussed case with Tori. Family out in ICU ring way and offered to have discussion in a more private place. Family denies need. Engaged in theapeutic discussion regarding goals of care. Educated on current plan and family is agreeable. Discussed code status with family. Kait (), Nica (daughter), Ever (son), and Billy (son) are present during initial conversation. Family reports plan to have a discussion with other family members regarding code status. Accompanied Dr Brewer to ICU waiting room. Dr Brewer educates family on Pt's condition, options for treatment, and current plan. Family report wanting Full Treatment at this time and would like the endoscopy procedure and if necassary the radiologist PCI. Family reports if these 2 options for treatment are unsccessful then DNR would be their wishes. Palliative Care will remain available.
[2019-01-18 10:40] LABS: PCO2 Arterial 38.6 mmHg (35-45); PO2 Arterial 365 mmHg (80-100); pH Blood Arterial 7.34 (7.35-7.45)
[2019-01-18 11:03] LABS: BASOPHILS ABSOLUTE AUTO 0.02 K/mm3 (0.00-0.23); BASOPHILS PERCENT AUTO 0 % (0-2); EOSINOPHILS ABSOLUTE AUTO 0.01 K/mm3 (0.00-0.68); EOSINOPHILS PERCENT AUTO 0 % (0-6); Hematocrit 31.3 % (37.0-53.0); Hemoglobin 10.7 g/dL (13.5-17.5); IMMATURE GRAN ABSOLUTE AUTO 0.16 K/mm3 (0.00-0.10); IMMATURE GRAN PERCENT AUTO 2 % (0-1); LYMPHOCYTES ABSOLUTE AUTO 0.53 K/mm3 (0.84-5.20); LYMPHOCYTES PERCENT AUTO 5 % (21-46); MONOCYTES ABSOLUTE AUTO 1.03 K/mm3 (0.16-1.47); MONOCYTES PERCENT AUTO 10 % (4-13); Mean Corpuscular HGB 29.5 pg (26.0-34.0); Mean Corpuscular HGB Conc 34.2 g/dL (31.5-36.5); Mean Platelet Volume 9.9 fL (9.1-12.4); NEUTROPHILS ABSOLUTE AUTO 9.09 K/mm3 (1.96-9.15); NEUTROPHILS PERCENT AUTO 84 % (41-73); Platelet Count 155 K/mm3 (150-400); RDW Coefficient Variation 15.5 % (11.7-14.2); Red Blood Cell Count 3.63 M/mm3 (4.30-5.90); White Blood Cell Count 10.84 K/mm3 (4.00-11.30)
[2019-01-18 11:10] LABS: Mean Corpuscular Volume 86 fL (80-100)
[2019-01-18 11:19] LABS: International Normalized Ratio 1.08; Prothrombin Time Results 11.4 Sec (9.7-11.5)
--- NOTE | 2019-01-18 11:30 | NUR ---
UPDATE Endoscopy complete. Levophed titrated between 5-15 mcg/min to maintain MAP greater than [address] Lin, protonix gtt to continue. Okay to place OG tube. OG tube and nunez catheter placed. Family at bedside. Updated on plan of care.
--- NOTE | 2019-01-18 13:44 | NUR ---
DR HU AT BEDSIDE; EXCHANGED CORDIS FOR 4 PORT CENTRAL LINE. PLACEMENT COMFIRMED BY XRAY. LEVOPHED AT 5MCG, PROPOFOL DECREASED FROM 50MCG TO 40MCG AT 1300. FENTANYL INCREASED FROM FROM 75MCG TO 100MCG PER DR HU AT 1300. CA GLUC INFUSING, MAG INFUSING.
[2019-01-18 14:57] LABS: Hematocrit 29.7 % (37.0-53.0); Hemoglobin 10.4 g/dL (13.5-17.5)
--- NOTE | 2019-01-18 16:00 | NUR ---
UPDATE IO removed from LLE as line is no longer needed. Discussed most recent labs with Dr Brewer. Plans to check H&H again at 1845.
--- NOTE | 2019-01-18 18:05 | NUR ---
SUMMARY Pt remains intubated and sedated. AC 16 vT 400, FiO2 35%, PEEP 5. SpO2 95% or greater. Propofol 40 mcg/kg/min. Fentanyl 100 mcg/hr. Lungs are coarse throughout on auscultation. Currently sinus tachycardia with rate between 100 and 110. PACs and PVCs present. Levophed currently infusing at 5 mcg/min. Vasopressin was not started this shift. Pt has had over 900 mL of dark red output, with several clots, through colostomy. Dr Brewer aware of output. Colostomy appliance changed this shift due to leakage. Coy catheter draining dark yellow urine. OG tube remains clamped. Will continue to closely monitor until care handoff and bedside report with oncoming RN.
[2019-01-18 18:58] LABS: Hematocrit 29.9 % (37.0-53.0); Hemoglobin 10.4 g/dL (13.5-17.5)
--- NOTE | 2019-01-18 21:26 | NUR ---
DR. HU CALLED AND WAS UPDATED. NEW ORDERS TO INFUSE CALCIUM GLUCONATE 2g IVPB, AND MAGNESIUM IVPB 1g NOW.
--- NOTE | 2019-01-18 22:26 | NUR ---
FAMILY AT BEDSIDE
[2019-01-19 00:34] LABS: Hemoglobin 10.6 g/dL (13.5-17.5)
--- NOTE | 2019-01-19 02:48 | NUR ---
BP DIFFERENCES: PT GIVEN BEDBATH. BP CUFF MOVED TO L UPPER ARM WITH HYPERTENSIVE PRESSURES COMPARED TO THE RIGHT. BP CUFF CHANGED AND BP TAKEN ON RLL, LLL, FELICIA, ROSALINDA, R WRIST AND LEFT WRIST. ALL BP ON RIGHT SIDE HYPOTENSIVE, ALL BP ON LEFT SIDE HYPERTENSIVE. COLLINS AUGER OPERATOR AND DR. ORTIZ AT BEDSIDE. DR. ORTIZ UPDATED. DR. ORTIZ SUGGESTED THAT HE WOULD PREFER TO FOLLOW THE BP ON THE LEFT. BP CUFF TO ROSALINDA AND LEVOPHED TITRATED ACCORDINGLY. LEVOPHED CURRENTLY 7mcg/min. SEE FLOW SHEET FOR VITALS.
[2019-01-19 05:33] LABS: BASOPHILS ABSOLUTE AUTO 0.05 K/mm3 (0.00-0.23); BASOPHILS PERCENT AUTO 1 % (0-2); EOSINOPHILS ABSOLUTE AUTO 0.28 K/mm3 (0.00-0.68); EOSINOPHILS PERCENT AUTO 3 % (0-6); Hematocrit 29.8 % (37.0-53.0); Hemoglobin 10.6 g/dL (13.5-17.5); IMMATURE GRAN ABSOLUTE AUTO 0.05 K/mm3 (0.00-0.10); IMMATURE GRAN PERCENT AUTO 1 % (0-1); LYMPHOCYTES ABSOLUTE AUTO 1.93 K/mm3 (0.84-5.20); LYMPHOCYTES PERCENT AUTO 22 % (21-46); MONOCYTES ABSOLUTE AUTO 0.84 K/mm3 (0.16-1.47); MONOCYTES PERCENT AUTO 10 % (4-13); Mean Corpuscular HGB 29.6 pg (26.0-34.0); Mean Corpuscular HGB Conc 35.6 g/dL (31.5-36.5); Mean Platelet Volume 9.7 fL (9.1-12.4); NEUTROPHILS ABSOLUTE AUTO 5.68 K/mm3 (1.96-9.15); NEUTROPHILS PERCENT AUTO 64 % (41-73); Platelet Count 193 K/mm3 (150-400); RDW Coefficient Variation 17.1 % (11.7-14.2); RDW Standard Deviation 50.7 fL (35.1-46.3); Red Blood Cell Count 3.58 M/mm3 (4.30-5.90); White Blood Cell Count 8.83 K/mm3 (4.00-11.30)
[2019-01-19 05:34] LABS: Mean Corpuscular Volume 83 fL (80-100)
--- NOTE | 2019-01-19 05:57 | NUR ---
END OF SHIFT: PT REMAINED INTUBATED SEDATED WITH PROPOFOL AND FENTANYL. PT REMAINS ON LEVOPHED (SEE PREVIOUS NOTE RE: BP). NO SIGN OF BLEEDING NOTED THIS SHIFT. DR. ORTIZ AT BEDSIDE THIS AM AND WAS UPDATED. PT OPENS EYES TO NAME AND TRIES TO FOLLOW COMMANDS.
[2019-01-19 06:01] LABS: Alanine Aminotransfer (ALT/SGP 11 U/L (12-78); Albumin, Blood 1.9 g/dL (3.4-5.0); Albumin/Globulin Ratio 0.8 (0.8-1.8); Alk Phos 48 U/L (50-136); Anion Gap 6 mmol/L (6-16); Aspartate Aminotrans (AST/SGOT 35 U/L (12-37); Bilirubin, Total 1.3 mg/dL (0.1-1.0); Blood Urea Nitrogen 16 mg/dL (8-24); Bun/Creatinine Ratio 24.8 (12.0-20.0); CO2, Blood 23 mmol/L (21-32); Calcium, Blood 7.2 mg/dL (8.5-10.1); Chloride, Blood 110 mmol/L (98-108); Creatinine, Blood 0.65 mg/dL (0.60-1.20); Globulin, Blood 2.4 g/dL (2.2-4.0); Glomerular Filtration Rate >60 (60-); Glucose, Blood 96 mg/dL (70-99); Magnesium, Blood 1.9 mg/dL (1.6-2.4); Phosphorus, Blood 2.6 mg/dL (2.5-4.9); Potassium, Blood 3.7 mmol/L (3.5-5.5); Sodium, Blood 139 mmol/L (136-145); Total Protein, Blood 4.3 g/dL (6.4-8.2)
--- NOTE | 2019-01-19 07:00 | NUR ---
REC'D REPORT FROM YOGI BRADLEY. WILL NOW ASSUME CARE OF THIS PT.
--- NOTE | 2019-01-19 07:45 | NUR ---
AM ASSESSMENT: PT IS INTUBATED AND SEDATED ON TITRATED PROPOFOL, ALSO USING FENTANYL 100MCG/HR ADJUNCT THERAPY FOR SEDATION. REMAINS IN BILATERAL WRIST RESTRAINTS. PT WILL OPEN EYES TO VOICE, SQUEEZE HANDS WHEN ASKED. LUNGS ARE CLEAR BUT DIMINISHED IN THE BILATERAL BASES, MORE DIM ON LT BASE. 02 SATS >90% ON VENT SETTINGS: 16/400/5/35%. LEVOPHED @ 5MCG/MIN PER QAUD CENTRAL LINE IN THE RT NECK. DEPENDENT/GENERAL/SCROTAL EDEMA, 1+, NON-PITTING. ABD FIRM/ROUND/NO GRIMACE TO PALPATION. BT'S HYPOACTIVE X4 QAUDS. OGT CLAMPED AT THIS TIME. SMALL AMT OF LQD RED OUTPUT PER COLOSTOMY. FEW SPOTS OF ADRIANA RED OUTPUT FROM RECTUM.
--- NOTE | 2019-01-19 07:58 | NUR ---
DR GARCIA IN TO ASSESS PT. UPDATED DR ON PT'S STATUS. DISCUSSED DOING MORE F/U H+H. SEE NEW ORDERS.
--- NOTE | 2019-01-19 18:22 | NUR ---
SHIFT SUMMARY: PT REMAINS INTUBATED AND SEDATED ON TITRATED PROPOFOL AND FENTANYL GTT @ 100MCG/MIN. BILATERAL SOFT WRIST RESTRAINTS IN PLACE. PT WILL AWAKEN AT TIMES TO VOICE AND OPEN EYES, WHEN SEDATION VACATION DONE, PT VERY CALM, OPENS EYES, FOLLOWS SIMPLE COMMANDS. LUNGS REMAIN CLEAR BUT DIMINISHED IN THE LT BASES. PT STARTED ON CPT TODAY PER RT. 02 SATS MAINTAIN >90% ON UNCHANGED VENT SETTINGS. PT TO BE WEANED IN THE AM. HR SLIGHTLY IRREGULAR, SR WITH FREQUENT PAC'S-90-110'S RANGE. LEVOPHED @ 3MCG/MIN TO MAINTAIN MAP >65. ABD FIRM/ROUND/NO GRIMACE TO PALPATION. BT'S REMAIN HYPOACTIVE X4 QAUDS. OGT IN PLACE, CLAMPED. COSME CATH DRAINING CLEAR, YELLOW URINE TO GRAVITY. COLONOSTOMY IN PLACE TO LUQ, W/ LARGE, HEALTHY, PINK STOMA PRESENT, NO OUTPUT.
--- NOTE | 2019-01-19 19:22 | NUR ---
REPORTED OFF TO YOGI BRADLEY WHOM WILL ASSUME CARE OF THIS PT.
--- NOTE | 2019-01-19 19:43 | NUR ---
DR. HU TO BEDSIDE AND UPDATED. NEW ORDER TO GIVE LASIX 40mg INSTEAD OF 20mg.
[2019-01-19 20:52] LABS: Hematocrit 32.5 % (37.0-53.0)
--- NOTE | 2019-01-20 01:02 | NUR ---
START OF SHIFT: REPORT FROM LINA CALIX. PT REMAINS INTUBATED SEDATION WITH PROPOFOL AT 40 mcg AND FENTANYL AT A CONTINUOUS INFUSION OF 100mcg/hr. PT MCFP OPENS EYES TO NAME AND CLENCHES HANDS TO COMMAND OR WHEN REPOSITIONED. PT GRIMACES WHEN TURNED AND DURING ORAL CARE AND SUCTIONING. PROPOFOL TITRATED TO 45 mcg DURING THESE TIMES. OTHERWISE VSS WITH CONSIDERATION TO DUIRISING AND TITRATING LEVOPHED. LEVOPHED TITRATED BETWEEN 3-6mcg/min THUS FAR THIS SHIFT KEEPING MAP >65.
[2019-01-20 04:27] LABS: BASOPHILS ABSOLUTE AUTO 0.04 K/mm3 (0.00-0.23); BASOPHILS PERCENT AUTO 0 % (0-2); EOSINOPHILS ABSOLUTE AUTO 0.21 K/mm3 (0.00-0.68); EOSINOPHILS PERCENT AUTO 2 % (0-6); Hematocrit 29.3 % (37.0-53.0); IMMATURE GRAN ABSOLUTE AUTO 0.05 K/mm3 (0.00-0.10); IMMATURE GRAN PERCENT AUTO 1 % (0-1); LYMPHOCYTES ABSOLUTE AUTO 1.61 K/mm3 (0.84-5.20); LYMPHOCYTES PERCENT AUTO 17 % (21-46); MONOCYTES ABSOLUTE AUTO 0.92 K/mm3 (0.16-1.47); MONOCYTES PERCENT AUTO 9 % (4-13); Mean Corpuscular HGB 29.1 pg (26.0-34.0); Mean Corpuscular HGB Conc 34.1 g/dL (31.5-36.5); Mean Corpuscular Volume 85 fL (80-100); Mean Platelet Volume 9.6 fL (9.1-12.4); NEUTROPHILS ABSOLUTE AUTO 6.92 K/mm3 (1.96-9.15); NEUTROPHILS PERCENT AUTO 71 % (41-73); Platelet Count 174 K/mm3 (150-400); RDW Coefficient Variation 17.2 % (11.7-14.2); RDW Standard Deviation 52.9 fL (35.1-46.3); Red Blood Cell Count 3.44 M/mm3 (4.30-5.90); White Blood Cell Count 9.75 K/mm3 (4.00-11.30)
[2019-01-20 04:44] LABS: Alanine Aminotransfer (ALT/SGP 8 U/L (12-78); Albumin, Blood 1.8 g/dL (3.4-5.0); Albumin/Globulin Ratio 0.8 (0.8-1.8); Alk Phos 57 U/L (50-136); Anion Gap 6 mmol/L (6-16); Aspartate Aminotrans (AST/SGOT 28 U/L (12-37); Bilirubin, Total 1.4 mg/dL (0.1-1.0); Blood Urea Nitrogen 13 mg/dL (8-24); Bun/Creatinine Ratio 16.9 (12.0-20.0); CO2, Blood 25 mmol/L (21-32); Calcium, Blood 6.9 mg/dL (8.5-10.1); Chloride, Blood 106 mmol/L (98-108); Creatinine, Blood 0.77 mg/dL (0.60-1.20); Globulin, Blood 2.4 g/dL (2.2-4.0); Glomerular Filtration Rate >60 (60-); Glucose, Blood 98 mg/dL (70-99); Magnesium, Blood 1.6 mg/dL (1.6-2.4); Potassium, Blood 2.9 mmol/L (3.5-5.5); Sodium, Blood 137 mmol/L (136-145); Total Protein, Blood 4.2 g/dL (6.4-8.2)
--- NOTE | 2019-01-20 06:41 | NUR ---
DR. HU NOTIFIED AND UPDATED: NEW ORDES TO ADMINISTER AN ADDITIONAL 20 mEq POTTASIUM FOR A TOTAL OF 80 mEq; CALCIUM GLUCONATE 3g IVPB; LASIX 20 mg ONCE THIS A.M. THEN D/C ORDER; MAGNESIUM 1g IVPB X1. CONTINUE POTASSIUM REDRAW 4' POST LAST BAG OF POTASSIUM.
--- NOTE | 2019-01-20 07:45 | NUR ---
AM ASSESSMENT: PT REMAINS SEDATED ON PROPOFOL @40MCG/KG/MIN AND FENTANYL GTT AT 100MCG/HR. PT WILL OPEN EYES TO VOICE, FOLLOWS SIMPLE COMMANDS AT TIMES. BILATERAL WRIST RESTRAINTS IN PLACE TO PROTECT LINES. LUNGS WITH EXP WHEEZES T/O AND DIMINISHED IN THE BILATERAL BASES. SP02>90% ON VENT SETTINGS: 16/400/5/25% FI02. HR IRREGULAR, SR W/PAC'S-100'S RANGE. LEVOPHED GTT @ 2MCG/MIN FOR HYPOTENSION. ABD SOFT/FIRM/NO GRIMACE TO PALPATION. BT'S REMAIN HYPOACTIVE. OGT IN PLACE, CLAMPED AT THIS TIME. COLOSTOMY TO LUQ WITH SM AMT OF LIQUID/RED OUTPUT. PROTONIX GTT CONT @ 10ML/HR.
--- NOTE | 2019-01-20 08:01 | NUR ---
WEANING TRIAL: 0734-PROPOFOL PLACED ON STANDBY. PT STARTING TO WAKE FAIRLY QUICKLY. PT WILL OPEN EYES TO VOICE, AND FOLLOW SIMPLE COMMANDS. PT CURRENTLY ON SPONTANEOUS MODE 12/24/FI02-25%, WITH SATS >90%, RR <18, TV-700-900, WITH OCCASIONAL TV <250.
--- NOTE | 2019-01-20 08:05 | NUR ---
PT PLACED ON AC MODE. WILL DISCUSS WEANING TRIAL WITH DR HENDERSON FOR POSSIBLE EXTUBATION.
--- NOTE | 2019-01-20 08:45 | NUR ---
DR GARCIA IN TO ASSESS PT. UPDATED ON PT'S STATUS. DISCUSSED CONTINUED DIURETICS. SEE NEW ORDERS.
--- NOTE | 2019-01-20 09:50 | NUR ---
DR HENDERSON IN TO ASSESS PT. UPDATED ON PT'S STATUS AND DISCUSSED POSSIBLE EXTUBATION.
--- NOTE | 2019-01-20 11:04 | NUR ---
1100- PT EXTUBATED. PT ON 3L 02 VIA N/C WITH 02 SATS 99-100%. VOICE IS SOFT/HOARSE, PT ORIENTED TO SELF ONLY.
--- NOTE | 2019-01-20 13:09 | NUR ---
PT UPDATE: PT REMAINS DROWSY BUT AWAKENS TO VERBAL STIMULI. REMAINS ORIENTED TO SELF. PT REMAINS PAINFUL "ALL OVER". PT GRIMACES WITH ANY MOVEMENT. PT TX'D W/FENTANYL PER ORDERS. POWERGLIDE PLACED IN THE RT UA BY YOGI MITCHELL IN PREPERATION OF CENTRAL LINE BEING D/C'D GAINING ALTERNATE ACCESS.
[2019-01-20 14:39] LABS: Hematocrit 30.4 % (37.0-53.0); Hemoglobin 10.1 g/dL (13.5-17.5)
--- NOTE | 2019-01-20 16:44 | NUR ---
SHIFT SUMMARY: PT WAS EXTUBATED AT 1100 TODAY. 02 SATS HIGH 90% RANGE ON 3L 02 VIA N/C. MAY BE ABLE TO WEAN PT FROM O2. PT HAS OCASSIONAL, WEAK/WET, NON-PRODUCTIVE COUGH. ENCOURAGING GOOD PULMONARY TOILET. CONSIDERED STARTING FLUTTER/IS TODAY, HOWEVER, PT NOT ABLE TO FOLLOW DIRECTIONS AT THIS TIME. CONTINUE CPT PER RT (2 TX'S THIS SHIFT). POWERGLIDE PLACED IN THE RT UA, IN ANTICIPATION OF D/C'ING CENTRAL LINE NOW THAT PT IS OFF LEVOPHED. MAPS CONTINUING TO MAINTAIN >65. NO NEW, ACUTE BLEEDING PER OSTOMY OR RECTUM. MINIMAL RED LIQUIDY STOOL PER COLOSTOMY. REPLACED POTASSIUM, MAGNESIUM, CALCIUM LEVELS TODAY PER IVPB. WILL RECHECK POTASSIUM AT 1800 AND FOLLOW ELECTROLYTE PROTOCOL.
--- NOTE | 2019-01-20 19:00 | NUR ---
ASSUMED CARE ASSUMED CARE OF PATIENT. DROWSY, BUT AWAKE. ORIENTED TO SELF ONLY. STATES "YES" WHEN ASKED IF HE KNOWS WHERE HE IS, BUT THEN IS UNABLE TO ANSWER OTHERWISE. APPEARS SLIGHTLY ANXIOUS. MOANS FREQUENTLY AND WITH ANY REPOSITIONING/TOUCH. MOVES ALL EXTREMITIES WEAKLY. KEKE, 3MM, SLUGGISH. MEDICATED WITH PRECEDEX @ 0.3MCG/KG/HR. MONITOR SHOWS NSR WITH PACs, RATE 90s. SBP 90s. O2 INCREASED TO 6L NC BY DAY SHIFT RN D/T DESATURATING TO MID-80s. SHALLOW RESPIRATIONS NOTED. COLOSTOMY INTACT TO ABDOMEN WITH- STOMA IS BEFFY AND RED. COSME PATENT AND DRAINING CLEAR YELLOW URINE. SEE SHIFT ASSESSMENT FOR FULL ASSESSMENT.
--- NOTE | 2019-01-20 19:39 | NUR ---
REPORTED OFF TO YOGI SHI WHOM WILL ASSUME CARE OF THIS PT.
--- NOTE | 2019-01-20 20:15 | NUR ---
CALL TO MD/O2 REQUIREMENTS DR. HENDERSON NOTIFIED OF PT NOW REQUIRING OXYMIZER AT 15L TO MAINTAIN SATS >90%. NEW ORDERS RECEIVED.
[2019-01-20 20:37] LABS: Hematocrit 28.9 % (37.0-53.0); Hemoglobin 9.7 g/dL (13.5-17.5)
[2019-01-21 02:56] LABS: BASOPHILS ABSOLUTE AUTO 0.02 K/mm3 (0.00-0.23); BASOPHILS PERCENT AUTO 0 % (0-2); EOSINOPHILS ABSOLUTE AUTO 0.05 K/mm3 (0.00-0.68); EOSINOPHILS PERCENT AUTO 0 % (0-6); Hematocrit 30.8 % (37.0-53.0); Hemoglobin 10.4 g/dL (13.5-17.5); IMMATURE GRAN ABSOLUTE AUTO 0.05 K/mm3 (0.00-0.10); IMMATURE GRAN PERCENT AUTO 0 % (0-1); LYMPHOCYTES PERCENT AUTO 12 % (21-46); MONOCYTES ABSOLUTE AUTO 0.68 K/mm3 (0.16-1.47); MONOCYTES PERCENT AUTO 6 % (4-13); Mean Corpuscular HGB 29.5 pg (26.0-34.0); Mean Corpuscular HGB Conc 33.8 g/dL (31.5-36.5); Mean Platelet Volume 9.5 fL (9.1-12.4); NEUTROPHILS ABSOLUTE AUTO 9.09 K/mm3 (1.96-9.15); NEUTROPHILS PERCENT AUTO 81 % (41-73); Platelet Count 158 K/mm3 (150-400); RDW Coefficient Variation 16.8 % (11.7-14.2); RDW Standard Deviation 53.4 fL (35.1-46.3); Red Blood Cell Count 3.52 M/mm3 (4.30-5.90); White Blood Cell Count 11.29 K/mm3 (4.00-11.30)
[2019-01-21 02:57] LABS: Mean Corpuscular Volume 88 fL (80-100)
[2019-01-21 03:18] LABS: Albumin, Blood 1.8 g/dL (3.4-5.0); Anion Gap 8 mmol/L (6-16); Blood Urea Nitrogen 13 mg/dL (8-24); Bun/Creatinine Ratio 19.7 (12.0-20.0); CO2, Blood 24 mmol/L (21-32); Calcium, Blood 7.4 mg/dL (8.5-10.1); Chloride, Blood 106 mmol/L (98-108); Creatinine, Blood 0.66 mg/dL (0.60-1.20); Glomerular Filtration Rate >60 (60-); Glucose, Blood 102 mg/dL (70-99); Magnesium, Blood 1.8 mg/dL (1.6-2.4); Phosphorus, Blood 4.3 mg/dL (2.5-4.9); Potassium, Blood 3.9 mmol/L (3.5-5.5); Sodium, Blood 138 mmol/L (136-145)
--- NOTE | 2019-01-21 06:19 | NUR ---
SHIFT SUMMARY NO ACUTE CHANGES DURING NOC. SLEPT INTERMITTENTLY. ROUSES EASILY TO STIMULI. ANXIOUS AND SLIGHTLY AGITATED WHEN AWAKE. PRECEDEX INFUSED BETWEEN 0.3-0.4MCG/KG/HR DURING SHIFT. NOW INFUSING @ 0.3MCG/KG/HR. ORIENTED TO SELF AND OCCASIONALLY TO THE FACT THAT HE'S IN THE HOSPITAL. FOLLOWS SIMPLE COMMANDS. SLOW VERBAL RESPONSE. MOVES ALL EXTREMITIES WEAKLY. COLOSTOMY INTACT WITH SCANT LIQUID DRAINAGE. INCONTINENT OF SCANT LOOSE TANNISH-PINK STOOL FROM RECTUM. REMAINS NPO- SWALLOW EVAL SCHEDULED FOR TODAY. COSME PATENT AND DRAINING DARK YELLOW URINE TO GRAVITY. PAS TO BLE. MEDICATED WITH FENTANYL 50MCG IV X 2 DOSES DURING SHIFT FOR C/O GENERAL PAIN. REMAINS IN CONTACT ISOLATION FOR VRE IN URINE. WILL REPORT TO DAY SHIFT RN WHEN AVAILABLE.
--- NOTE | 2019-01-21 07:30 | NUR ---
ASSUMED CARE OF PATIENT; SEE ASSESSMENT CHARTING FOR DETAILS. PATIENT SLEEPY BUT ROUSES EASILY WITH VERBAL TO MILD TACTILE STIMULI. ORIENTED TO SELF AND PLACE AND ABLE TO STATE WHY HE CAME TO HOSPITAL (BLEEDING). DRIFTS OFF TO SLEEP WHEN NOT DISTURBED. ON PRECEDEX DRIP DUE TO ONGOING ANXIETY ISSUES. LUNGS COARSE IN UPPER AIRWAYS; MOIST/NON-PRODUCTIVE COUGH. COLOSTOMY TO DRAINAGE BAG; STOMA NICE AND RED; PROTRUDES BUT PER PATIENTS' NORMAL. COSME TO GRAVITY AND DRAINING MOD. AMOUNTS OF CHRISTIE URINE. TO RECEIVE ONGOING DOSES OF DIURETIC TX.; SBP 90'S. MONITOR REMAINS NSR WITH OCCASIONAL PAC. LOWGRADE FEVER--99.0/TEMP.
[2019-01-21 08:49] LABS: Hematocrit 27.8 % (37.0-53.0); Hemoglobin 9.3 g/dL (13.5-17.5)
--- NOTE | 2019-01-21 08:50 | NUR ---
LAB REDRAWN FROM [facility] CENTRAL LINE (H&H)--PREV. SPEC. HAD CLOTTED.
--- NOTE | 2019-01-21 09:24 | NUR ---
DR. HENDERSON ROUNDED; SEE ORDERS. ENCOURAGING PATIENT TO BE OOB. PRECEDEX DRIP REDUCED TO 0.2MCG/KG/HR. PATIENT ROUSES AND STATES HE IS HURTING; SLOW TO RESPOND TO QUESTIONS ASKED. OXYMIZER REDUCED TO 4L/MIN.
--- NOTE | 2019-01-21 09:45 | NUR ---
SPEECH THERAPIST, EDWINA, HERE TO EVAL. PATIENT; SEE THERAPY NOTES. PATIENT RECEIVED 50MCG OF FENTANYL IVT JUST PRIOR TO S.T. ARRIVAL; NEEDED TO BE REROUSED T/O EVAL.
--- NOTE | 2019-01-21 10:05 | NUR ---
PHYSICAL THERAPIST HERE; STARTED EVAL. BUT ECHO. ARRIVED; TO SEE A LITTLE LATER AND HOPEFULLY WILL HAVE O.T. ASSIST. AND PLAN OOB WITH CEILING LIFT.
--- NOTE | 2019-01-21 10:45 | NUR ---
ECHOCARDIOGRAM COMPLETED.
--- NOTE | 2019-01-21 10:51 | NUR ---
Echocardiogram completed.
--- NOTE | 2019-01-21 12:59 | NUR ---
RN FED PATIENT PUREED LUNCH; SPOON FED ALL LIQUIDS (IE WATER); SHADE. ABOUT 30% OF MEAL; NO DIFFICULTY WITH SWALLOWING.
[2019-01-21 14:12] LABS: Hemoglobin 9.1 g/dL (13.5-17.5)
--- NOTE | 2019-01-21 15:30 | NUR ---
PATIENTS' FAMILY (SPOUSE, DAUGHTER AND GRANDSON), IN TO VISIT. PLEASED WITH HOW MUCH BETTER PATIENT IS COMMUNICATING; FELT LIKE HE WAS MENTALLY HIS NORMAL SELF. HAS HAD RECENT ISSUES WITH LLE S/P A FALL HE EXPERIENCED ABOUT A MONTH AGO; WHEN HE WENT TO THE [employer] [facility], AT THE [facility]; XRAYS OF SPINE WERE ORDERED BUT WERE NEVER DONE D/T OTHER HEALTH ISSUES ARISING. FAMILY WANTS TO MAKE SURE BACK IS CHECKED BEFORE PATIENT LEAVES HOSPITAL. RN SPOKE TO DR. HENDERSON AND HE IS AWARE OF FALL AND NEED TO EVAL.; WANTS TO WAIT TIL PATIENT MORE MOBILE AND MORE STABLE; RN CONVEYED THIS TO THE FAMILY AND THEY V/U.
--- NOTE | 2019-01-21 18:02 | NUR ---
SUMMARY: OVERALL STATUS IMPROVED; FED BY MATERIAL ANALYST (DINNER); NO GI ISSUES; MATERIAL ANALYST STATES PATIENT CARRYING ON NORMAL CONVERSATIONS. MEDICATED WITH IV FENTANYL, X3, T/O TODAY FOR 6-710 EXTREM. PAIN (ARTHRITIS AND SWELLING). REMAINS OFF PRECEDEX DRIP; NOT "GRUFF" OR ANXIOUS THIS AFTERNOON. HANDS AND LEGS (FORTINO L LEG) PAINFUL, FORTINO. TO TOUCH. ABLE TO REST WHEN NOT DISTURBED OR WATCH TV FOR SHORT PERIODS. U/O 1350CC OF LT. YELLOW URINE. IV'S TURNED OFF; NOT INDICATED. H&H DRAWN T/O DAY AND CONT. TO DROP; SLOW BUT STEADY; WILL CONTINUE TO MONITOR.
--- NOTE | 2019-01-21 18:40 | NUR ---
DR. ORTIZ' (GI) HERE TO EVAL. PATIENT; IMPRESSED WITH OVERALL IMPROVEMENT; NOT CONCERNED ABOUT SLOW BUT STEADY DROP IN H&H THE PAST 24 HRS. ABD. SOFT AND NON-TENDER; NO STOOL FROM COLOSTOMY; FLATUS NOTED IN BAG.
--- NOTE | 2019-01-21 19:45 | NUR ---
ASSUMED CARE REPORT RECIEVED. PT IS LAYING IN BED SLOUCHED OVER TO RIGHT SIDE. PT IS AWAKE, ALERT, AND ORIENTED. PT IS SLOW TO RESPOND TO QUESTIONS. PT COMPLAINS OF PAIN IN LEFT FOOT AT THIS TIME. VITAL SIGNS STABLE, PT ON 2L O2 NC. PT WITH CENTRAL LINE TO RIJ, SALINE LOCKED, AND PG TO FELICIA, SALINE LOCKED. COSME IN PLACE WITH DARK YELLOW OUTPUT NOTED. COLOSTOMY IN PLACE WITH LARGE, PINK STOMA, WITH MINIMAL STOOL OUTPUT NOTED. PT NEEDS ASSISTANCE AND ENCOURAGEMENT WITH MOVEMENT. NO FAMILY AT BEDSIDE. WILL CONTINUE TO MONITOR.
[2019-01-21 20:37] LABS: Hematocrit 28.4 % (37.0-53.0); Hemoglobin 9.6 g/dL (13.5-17.5)
[2019-01-22 02:28] LABS: BASOPHILS ABSOLUTE AUTO 0.01 K/mm3 (0.00-0.23); BASOPHILS PERCENT AUTO 0 % (0-2); EOSINOPHILS ABSOLUTE AUTO 0.05 K/mm3 (0.00-0.68); EOSINOPHILS PERCENT AUTO 1 % (0-6); Hematocrit 26.4 % (37.0-53.0); IMMATURE GRAN ABSOLUTE AUTO 0.04 K/mm3 (0.00-0.10); IMMATURE GRAN PERCENT AUTO 0 % (0-1); LYMPHOCYTES ABSOLUTE AUTO 1.04 K/mm3 (0.84-5.20); LYMPHOCYTES PERCENT AUTO 10 % (21-46); MONOCYTES ABSOLUTE AUTO 0.79 K/mm3 (0.16-1.47); MONOCYTES PERCENT AUTO 7 % (4-13); Mean Corpuscular HGB Conc 34.1 g/dL (31.5-36.5); Mean Corpuscular Volume 88 fL (80-100); Mean Platelet Volume 9.7 fL (9.1-12.4); NEUTROPHILS ABSOLUTE AUTO 8.68 K/mm3 (1.96-9.15); NEUTROPHILS PERCENT AUTO 82 % (41-73); Platelet Count 166 K/mm3 (150-400); RDW Coefficient Variation 16.4 % (11.7-14.2); RDW Standard Deviation 51.9 fL (35.1-46.3); White Blood Cell Count 10.61 K/mm3 (4.00-11.30)
[2019-01-22 02:43] LABS: Albumin, Blood 1.8 g/dL (3.4-5.0); Anion Gap 8 mmol/L (6-16); Blood Urea Nitrogen 13 mg/dL (8-24); Bun/Creatinine Ratio 20.9 (12.0-20.0); CO2, Blood 27 mmol/L (21-32); Calcium, Blood 7.3 mg/dL (8.5-10.1); Chloride, Blood 106 mmol/L (98-108); Creatinine, Blood 0.62 mg/dL (0.60-1.20); Glomerular Filtration Rate >60 (60-); Glucose, Blood 114 mg/dL (70-99); Magnesium, Blood 1.7 mg/dL (1.6-2.4); Phosphorus, Blood 2.6 mg/dL (2.5-4.9); Potassium, Blood 2.9 mmol/L (3.5-5.5); Sodium, Blood 141 mmol/L (136-145)
--- NOTE | 2019-01-22 05:50 | NUR ---
SHIFT SUMMARY NO ACUTE CHANGES THIS SHIFT. PT HAS SLEPT OFF AND ON THROUGHOUT THE SHIFT. WHEN AWAKE, PT IS SLOW TO RESPOND, BUT ALERT AND ORIENTED. PT CONTINUES TO BE PAINFUL WITH ANY MOVEMENT. PT MED PER EMAR. VITAL SIGNS HAVE REMAINED STABLE. PT ON 2L 02 NC. CL REMAINS C/D/I. PG REMAINS C/D/I. KCL IVPB INFUSING AT THIS TIME. COSME REMAINS IN PLACE WITH DARK YELLOW OUTPUT NOTED. COLOSTOMY WITH NO NEW OUTPUT THIS SHIFT. WILL CONTINUE TO MONITOR AND REPORT OFF TO ONCOMING RN.
--- NOTE | 2019-01-22 07:30 | NUR ---
ASSUMED CARE OF PATIENT; SEE ASSESSMENT CHARTING FOR DETAILS. PATIENT SLEEPY BUT ROUSES TO VERBAL STIMULI; APPEARS LESS PAINFUL THAN YESTERDAY AM. HANDS SWOLLEN, R WORSE THAN LEFT, BUT OVERALL EDEMA MUCH REDUCED. SCROTUM REMAINS QUITE SWOLLEN; PILLOWCASE USED A SLING TO LIFT SCROTUM/ELEVATE. COSME TO GRAVITY AND DRAINING MOD. AMOUNTS OF MED. YELLOW URINE. COLOSTOMY BAG INTACT; FLATUS BUT NO STOOL NOTED. RECEIVING K+ RIDER; LEVEL WAS 2.9 THIS AM.
[2019-01-22 08:45] LABS: Hematocrit 28.8 % (37.0-53.0); Hemoglobin 9.6 g/dL (13.5-17.5)
--- NOTE | 2019-01-22 08:45 | NUR ---
DR. HENDERSON HERE; CHANGED PATIENT TO PCU STATUS.
--- NOTE | 2019-01-22 10:30 | NUR ---
OXYGEN REPLACED; HAD BEEN ON ROOM AIR MOST OF AM BUT BIOX DROPPED INTO 70'S DURING SLEEP; ENCOURAGED TO COUGH; MOIST AND PRODUCTIVE (SWALLOWED MUCUS); BIOX. IN MID TO HIGH 90'S, NOW.
--- NOTE | 2019-01-22 12:20 | NUR ---
HERE (HOSPITALIST); SEE ORDERS.
--- NOTE | 2019-01-22 12:55 | NUR ---
REPORT TO MARITO Cummings RN; PATIENT TO TRANSFER TO PCU 6.
--- NOTE | 2019-01-22 13:00 | NUR ---
TO PCU 6 VIA BED. BELONGINGS, CHART/MEDS WITH PATIENT. BROACH GRINDERLI, TRANSPORTED PATIENT WITHOUT INCIDENT. RN T/C TO PATIENTS' DAUGHTER TO INFORM OF TRANSFER (MESSAGE LEFT). ALSO, T/C TO PATIENTS' SON; INFORMED HIM REGARDING TRANSFER AND ALSO UPDATED HIM ON PATIENTS' STATUS.
[2019-01-22 15:10] LABS: Hematocrit 27.7 % (37.0-53.0)
--- NOTE | 2019-01-22 17:28 | NUR ---
SHIFT SUMMARY PT RECEIVED FROM ICU THIS AFTERNOON. ALERT AND ORIENTED TO SELF, FOLLOWING COMMANDS APPROPRIATELY. PT YELLS OUT AT TIMES APPEARS TO BE IN PAIN, BUT DENIES NEED FOR REPOSITIONING OR FOR PAIN MEDS THIS AFTERNOON. INSTRUCTED TO CALL WITH NEED FOR MEDS, PT VERBALIZES UNDERSTANDING. LUNG SOUNDS INSPIRATORY WHEEZES TO LEFT SIDE, CLEAR DIMINISHED BASES TO RIGHT SIDE. SINUS TACHYCARDIA WITH PACs RATE 90s-100s ON TELEMETRY. STRENGTH IS WEAK TO HANDS AND FEET. C/O PAIN ALL OVER WHEN MOVED OR TOUCHED, STATES HE IS COMFORTABLE WHEN RESTING. WARM BLANKET PROVIDED. FAMILY AT BEDSIDE THIS AFTERNOON. WILL CONTINUE TO MONITOR.
--- NOTE | 2019-01-22 19:51 | NUR ---
ASSUMED CARE PT RESTING IN ROOM AND APPEARS TO BE COMFORTABLE AT THIS TIME. PT ANSWERS QUESTIONS APPROPRIATELY. ALERT AND ORIENTED TO SELD AND PLACE. PT HAS MOMENTS OF CONFUSION AND IS EASILY REDIRECTABLE. RESP EVEN UNLABORED AND SLIGHTLY TACHY ON 2L NC, W/ SATS >92%. WHEN ASKED ABOUT PAIN, PT DOES REPORT PAIN IS INCREASINLY AND PT DOES REPORT WOULD LIKE EVENING PAIN MED WHEN AVAILABLE. PT REFUSED TURN AT THIS TIME. REPORTS DOESNT WANT TO MOVE. WILL ATTEMPT TO TURN PT AFTER PAIN MEDS ARE ADMINISTERED. CALL LIGHT IS WITHIN REACH.
[2019-01-23 04:00] LABS: BASOPHILS ABSOLUTE AUTO 0.03 K/mm3 (0.00-0.23); BASOPHILS PERCENT AUTO 0 % (0-2); EOSINOPHILS ABSOLUTE AUTO 0.02 K/mm3 (0.00-0.68); EOSINOPHILS PERCENT AUTO 0 % (0-6); Hematocrit 29.7 % (37.0-53.0); Hemoglobin 9.8 g/dL (13.5-17.5); IMMATURE GRAN ABSOLUTE AUTO 0.09 K/mm3 (0.00-0.10); IMMATURE GRAN PERCENT AUTO 1 % (0-1); LYMPHOCYTES ABSOLUTE AUTO 1.43 K/mm3 (0.84-5.20); LYMPHOCYTES PERCENT AUTO 11 % (21-46); MONOCYTES ABSOLUTE AUTO 1.14 K/mm3 (0.16-1.47); MONOCYTES PERCENT AUTO 9 % (4-13); Mean Corpuscular HGB 29.6 pg (26.0-34.0); Mean Corpuscular Volume 90 fL (80-100); Mean Platelet Volume 10.3 fL (9.1-12.4); NEUTROPHILS ABSOLUTE AUTO 10.63 K/mm3 (1.96-9.15); NEUTROPHILS PERCENT AUTO 80 % (41-73); Platelet Count 199 K/mm3 (150-400); RDW Coefficient Variation 16.7 % (11.7-14.2); RDW Standard Deviation 53.9 fL (35.1-46.3); Red Blood Cell Count 3.31 M/mm3 (4.30-5.90); White Blood Cell Count 13.34 K/mm3 (4.00-11.30)
[2019-01-23 04:16] LABS: Albumin, Blood 2.3 g/dL (3.4-5.0); Anion Gap 12 mmol/L (6-16); Blood Urea Nitrogen 10 mg/dL (8-24); Bun/Creatinine Ratio 17.4 (12.0-20.0); CO2, Blood 23 mmol/L (21-32); Calcium, Blood 7.7 mg/dL (8.5-10.1); Chloride, Blood 105 mmol/L (98-108); Creatinine, Blood 0.57 mg/dL (0.60-1.20); Glomerular Filtration Rate >60 (60-); Glucose, Blood 96 mg/dL (70-99); Magnesium, Blood 1.8 mg/dL (1.6-2.4); Phosphorus, Blood 2.7 mg/dL (2.5-4.9); Potassium, Blood 3.7 mmol/L (3.5-5.5); Sodium, Blood 140 mmol/L (136-145)
--- NOTE | 2019-01-23 05:55 | NUR ---
SHIFT SUMMARY PT SLEEPING IN ROOM COMFORTABLY. NO ACUTE CHANGES IN STATUS T.O NIGHT. PT SLEPT WELL OFF AND ON. PT REPORTED WAS PAINFUL T.O NIGHT DURING TURNS. PT REFUSED SEVERAL TURNS T/O NIGHT. THIS RN WAS ABLE TO EDUCATE PT ON NEED FOR TURNS TO PREVENT SKIN BREAKDOWN TO BACKSIDE. PT ALLOWED THIS RN TO TURN PT TO EXAMINE BUTTOCKS ONCE T/O NIGHT, SKIN C/D/I, SKIN CARE PROVIDED. PT DID NOT TOLERATE WELL, CALLED OUT IN PAIN T/O ENTIRE URN. REFUSED PAIN MEDS AFTER TURNS. REPORTED "I'M FINE IF I DONT MOVE". DENIES CP. RESP EVEN UNLABORED AND SLIGHTLY TACHY ON 2L NC W/ SATS >92%. CALL LIGHT IN REACH.
[2019-01-23 12:35] LABS: Source, Urine Catheter
[2019-01-23 12:52] LABS: Appearance, Urine Cloudy (Clear); Bilirubin, Urine 1+ (Neg); Blood, Urine 3+ (Neg); Color, Urine Amber (P-Yellow); Glucose Qualitative, Urine Neg (Neg); Ketones, Urine 4+ (Neg); Leukocyte Esterase, Urine 3+ (Neg); Nitrite, Urine Pos (Neg); Protein, Urine 3+ (Neg); Specific Gravity, Urine 1.015 (1.003-1.022); Urobilinogen, Urine 3+ (Normal)
[2019-01-23 12:57] LABS: Red Blood Cells, Urine 50-100 /hpf (0-2); Squamous Epithelial Cells Not Seen /hpf (Few); White Blood Cells, Urine TNTC /hpf (0-5)
[2019-01-23 12:58] LABS: Bacteria Many /hpf
--- NOTE | 2019-01-23 14:50 | NUR ---
SHIFT SUMMARY PT RESTING IN BED THROUGHOUT THE DAY. ALERT AND ORIENTED TO SELF AND PLACE, FOLLOWING COMMANDS APPROPRIATELY. VSS EXCEPT FOR TACHYCARDIA RATE 100-120s WITH SPIKE TO 140s. IV LOPRESSOR GIVEN AND PO TOPROL XL GIVEN PER ORDERS. HEART RATE 100s. PER INDUSTRIAL ELECTRICIAN, PT IN AFIB / MAT RHYTHM, PACs NOTED. LUNG SOUNDS CLEAR, DIMINISHED BASES. MOIST OCCASIONAL COUGH NOTED. 1+ PITTING EDEMA TO BUE, SCROTAL EDEMA NOTED. C/O PAIN TO LEGS / BACK 03/31, MEDICATED WITH SCHEDULED PAIN MEDS. PT TOLERATING PILLS IN APPLESAUCE. WILL CONTINUE TO MONITOR.
[2019-01-23 15:21] LABS: Hematocrit 28.8 % (37.0-53.0); Hemoglobin 9.3 g/dL (13.5-17.5)
--- NOTE | 2019-01-23 16:30 | NUR ---
ASSUMED CARE FROM MARITO CALIX.
--- NOTE | 2019-01-23 16:53 | NUR ---
REPORT CALLED TO MEDICAL FLOOR RN. PT TO BE TAKEN UP BY BED.
--- NOTE | 2019-01-23 18:40 | NUR ---
CALLED HOSPITALIST RECEIVED REPORT FROM NURSE OSCAR. PT TRANSFERED FROM PCU. UPON MY ASSESSMENT: PT FOUND TO HAVE BRUISES ON BOTH HEELS, OPEN TO AIR. A PRESSURE ULCER ON HIS COCCYX, OPEN TO AIR - WE COVERED THEM WITH MEPILEXS, TOOK PHOTOS. . A WOUND ON HIS SCROTUM OPEN TO AIR. PT SOB, BEGGED FOR RT TREATMENT. HR 125 BPM, BP ELEVATED, REQUIRED 10 LPM OXIMIZER TO MAINTAIN 84%. CALLED HOSPITALIST: ORDERED IV METOPROLOL, TRANSFER BACK TO PCU, CHEST X RAY.
--- NOTE | 2019-01-23 19:01 | NUR ---
CALLED PCU NURSE CLAUDY GAVE REPORT ON THIS PT. SHE HAD NO FURTHER QUESTIONS. PT TRANSFERED TO PCU
[2019-01-23 19:06] LABS: Source, Urine Catheter
[2019-01-23 19:24] LABS: Blood, Urine 3+ (Neg); Glucose Qualitative, Urine Neg (Neg); Ketones, Urine 4+ (Neg); Leukocyte Esterase, Urine 3+ (Neg); Nitrite, Urine Pos (Neg); Protein, Urine 3+ (Neg); Urobilinogen, Urine 3+ (Normal)
[2019-01-23 19:33] LABS: Appearance, Urine Cloudy (Clear); Bilirubin, Urine 2+ (Neg); Color, Urine Yellow (P-Yellow)
[2019-01-23 19:35] LABS: White Blood Cells, Urine TNTC /hpf (0-5)
[2019-01-23 19:36] LABS: Bacteria Many /hpf; Squamous Epithelial Cells Not Seen /hpf (Few)
--- NOTE | 2019-01-24 02:53 | NUR ---
Assumed care of pt at approx 1914. Report called to YOGI Vera and care assumed. Pt on 10L hiflow NC with o2 saturations >90%. Pt with moderate work of breathing, in mild respiratory distress. Alert and oriented. Pt placed on BIPAP with Fi02 at 45%. Pt tolerated BIPAP until approx 0100. Pt placed back on 10L hiflow with saturations at 92%. Pt tachypneic, no changes in oxygen demand so far this shift. Ostomy clear. nunez patent and draining. Pt refusing q2 turns dispite education regarding pressure sores and pressure sore prevention. mepilex in place, heels covered, scrotum sling in place. Pt currently (299) on hiflow NC at 10L, breathing easy and unlabored, remains tachypneic. Pt watching TV. No acute changes on tele, pt with no complaints at this time. Will continue to monitor.
[2019-01-24 04:07] LABS: BASOPHILS ABSOLUTE AUTO 0.03 K/mm3 (0.00-0.23); BASOPHILS PERCENT AUTO 0 % (0-2); EOSINOPHILS ABSOLUTE AUTO 0.02 K/mm3 (0.00-0.68); EOSINOPHILS PERCENT AUTO 0 % (0-6); Hematocrit 28.9 % (37.0-53.0); Hemoglobin 9.4 g/dL (13.5-17.5); IMMATURE GRAN ABSOLUTE AUTO 0.09 K/mm3 (0.00-0.10); IMMATURE GRAN PERCENT AUTO 1 % (0-1); LYMPHOCYTES ABSOLUTE AUTO 1.64 K/mm3 (0.84-5.20); LYMPHOCYTES PERCENT AUTO 13 % (21-46); MONOCYTES ABSOLUTE AUTO 1.13 K/mm3 (0.16-1.47); MONOCYTES PERCENT AUTO 9 % (4-13); Mean Corpuscular HGB 28.8 pg (26.0-34.0); Mean Corpuscular HGB Conc 32.5 g/dL (31.5-36.5); Mean Corpuscular Volume 89 fL (80-100); Mean Platelet Volume 10.5 fL (9.1-12.4); NEUTROPHILS ABSOLUTE AUTO 10.15 K/mm3 (1.96-9.15); NEUTROPHILS PERCENT AUTO 78 % (41-73); Platelet Count 204 K/mm3 (150-400); RDW Coefficient Variation 16.6 % (11.7-14.2); RDW Standard Deviation 53.7 fL (35.1-46.3); Red Blood Cell Count 3.26 M/mm3 (4.30-5.90); White Blood Cell Count 13.06 K/mm3 (4.00-11.30)
[2019-01-24 04:24] LABS: Albumin, Blood 2.3 g/dL (3.4-5.0); Anion Gap 9 mmol/L (6-16); Blood Urea Nitrogen 13 mg/dL (8-24); CO2, Blood 23 mmol/L (21-32); Calcium, Blood 7.8 mg/dL (8.5-10.1); Chloride, Blood 106 mmol/L (98-108); Creatinine, Blood 0.62 mg/dL (0.60-1.20); Glomerular Filtration Rate >60 (60-); Glucose, Blood 91 mg/dL (70-99); Potassium, Blood 4.2 mmol/L (3.5-5.5); Sodium, Blood 138 mmol/L (136-145)
--- NOTE | 2019-01-24 07:36 | NUR ---
Shift Summary Pt continued with 10L NC to maintain oxygen saturations 90% and greater. Pt with intermittant confusion this shift, once reoriented, pt remains oriented. Pt responds appropriately in conversation, uses call light appropriately, able to make needs known. VSS, no event on tele, no apparent signs of distress. Pt with stable H&H again this shift, per labs. Coy and colostomy patent and draining. Pt remains painful, refuses q2 turns. Pillows attempted to be tucked to prevent skin break down. No further changes from initial shift assessment. Report handoff given to day RN who has assumed care.
[2019-01-24 15:26] LABS: Hematocrit 28.7 % (37.0-53.0); Hemoglobin 9.3 g/dL (13.5-17.5)
--- NOTE | 2019-01-24 17:55 | NUR ---
SHIFT SUMMARY PT RESTING IN BED THROUGHOUT THE DAY. ALERT AND ORIENTED TO SELF AND PLACE, SOMETIMES ORIENTED TO TIME. FOLLOWING COMMANDS APPROPRIATELY, PT YELLING OUT AT TIMES WITH MOVEMENTS AND REPOSITIONING. PT REFUSING Q2 TURNS. SACRUM AND COCCYX NOTED TO BE PURPLE WITH BLOODY SPOTS NOTED. MEPILEX IN PLACE, BARRIER CREAM APPLIED. PT's HIPS FLOATED WITH PILLOWS ON BOTH SIDES. LUNG SOUNDS EXPIRATORY WHEEZES, DIMINISHED THROUGHOUT. OXYGEN AT 5-6L VIA NC, SATURATIONS 88-92%. COLOSTOMY DRAINING DARK LIQUID STOOL. MAT ON TELEMETRY RATE 90-120s. 1+ PITTING EDEMA TO BUE, EDEMA TO SCROTUM. COSME DRAINING DARK CHRISTIE URINE. WILL CONTINUE TO MONITOR.
[2019-01-25 03:58] LABS: BASOPHILS ABSOLUTE AUTO 0.03 K/mm3 (0.00-0.23); BASOPHILS PERCENT AUTO 0 % (0-2); EOSINOPHILS PERCENT AUTO 0 % (0-6); Hematocrit 31.2 % (37.0-53.0); Hemoglobin 9.8 g/dL (13.5-17.5); IMMATURE GRAN ABSOLUTE AUTO 0.12 K/mm3 (0.00-0.10); IMMATURE GRAN PERCENT AUTO 1 % (0-1); LYMPHOCYTES ABSOLUTE AUTO 0.79 K/mm3 (0.84-5.20); LYMPHOCYTES PERCENT AUTO 6 % (21-46); MONOCYTES ABSOLUTE AUTO 0.28 K/mm3 (0.16-1.47); MONOCYTES PERCENT AUTO 2 % (4-13); Mean Corpuscular HGB 28.5 pg (26.0-34.0); Mean Corpuscular HGB Conc 31.4 g/dL (31.5-36.5); Mean Corpuscular Volume 91 fL (80-100); Mean Platelet Volume 10.9 fL (9.1-12.4); NEUTROPHILS ABSOLUTE AUTO 13.11 K/mm3 (1.96-9.15); NEUTROPHILS PERCENT AUTO 92 % (41-73); Platelet Count 217 K/mm3 (150-400); RDW Coefficient Variation 16.5 % (11.7-14.2); RDW Standard Deviation 53.5 fL (35.1-46.3); Red Blood Cell Count 3.44 M/mm3 (4.30-5.90); White Blood Cell Count 14.33 K/mm3 (4.00-11.30)
--- NOTE | 2019-01-25 05:41 | NUR ---
Shift Summary No acute changes this shift. Pt with VSS. Sleeping on and off this shift. Colostomy patent and draining liquid stool. Coy patent and draining. Pt titrated down to 5L NC with o2 saturations >94%. Breathing remains easy and unlabored this shift. Pt continues to refuse q2 turning. One reposition tolerated in which hips were floated, heels floated, pillows adjusted to repostion pt on right side. When pt is awake, pt is alert and oriented to place, event, person and following directions. Pt uses call light to make needs known, call light in reach. Will continue to monitor until day RN assumes care.
[2019-01-25 11:05] LABS: Alanine Aminotransfer (ALT/SGP 16 U/L (12-78); Albumin, Blood 2.3 g/dL (3.4-5.0); Albumin/Globulin Ratio 0.7 (0.8-1.8); Alk Phos 69 U/L (50-136); Anion Gap 14 mmol/L (6-16); Aspartate Aminotrans (AST/SGOT 37 U/L (12-37); Bilirubin, Total 1.5 mg/dL (0.1-1.0); Blood Urea Nitrogen 18 mg/dL (8-24); CO2, Blood 21 mmol/L (21-32); Calcium, Blood 7.7 mg/dL (8.5-10.1); Chloride, Blood 101 mmol/L (98-108); Creatinine, Blood 0.72 mg/dL (0.60-1.20); Globulin, Blood 3.2 g/dL (2.2-4.0); Glomerular Filtration Rate >60 (60-); Glucose, Blood 101 mg/dL (70-99); Potassium, Blood 4.4 mmol/L (3.5-5.5); Sodium, Blood 136 mmol/L (136-145); Total Protein, Blood 5.5 g/dL (6.4-8.2)
--- NOTE | 2019-01-25 19:21 | NUR ---
pt had an episode of heart rate in the 140's for a period of time, OT was working with him at the time, so gave him time to come back down on his own when she was finished, he did not, call to Dr. Olivo, recieved order for 5mg lopressor, and to hold tonights dose of lasix. this was given, b/p came up over 100 but rate stayed up for a bit longer, then went back to the 80's. not symptomatic. he refuses to be turned today, explained why, still felt he was fine. call light in reach.
--- NOTE | 2019-01-25 19:47 | NUR ---
PCU NIGHTSHIFT ASSUMED CARE OF PT APPROX. 1900. PT A&OX4. ASSESSMENT COMPLETED. VITAL SIGNS STABLE. PT REPORTS THAT COCCYX AREA SORE. DISCUSSED WITH ABOUT REPOSITIONING AND IMPORTANCE TO HELP MAINTAIN SKIN INTEGRUITY. PT AGREED TO TURN THIS TIME. PLACED PILLOW UNDER LEFT SIDE AND UNDER RIGHT ARM. PT REPORTS THIS TO BE MORE COMFORTABLE. PT REPORTS FEELING GOOD AT THIS TIME. OSTOMY REMAINS IN PLACE, INTACT. SMALL AMOUNT OF LOOSE, DARK STOOL NOTED IN BAG. COSME REMAINS INTACT, IN PLACE AND DRAINING. BED IN LOW POSITION, CALL LIGHT IN REACH AND PT DENIES ANY NEEDS AT THIS TIME. WILL CONTINUE TO MONITOR.
[2019-01-26 03:35] LABS: BASOPHILS ABSOLUTE AUTO 0.01 K/mm3 (0.00-0.23); BASOPHILS PERCENT AUTO 0 % (0-2); EOSINOPHILS PERCENT AUTO 0 % (0-6); Hematocrit 29.6 % (37.0-53.0); Hemoglobin 9.5 g/dL (13.5-17.5); IMMATURE GRAN PERCENT AUTO 1 % (0-1); LYMPHOCYTES ABSOLUTE AUTO 0.96 K/mm3 (0.84-5.20); LYMPHOCYTES PERCENT AUTO 8 % (21-46); MONOCYTES ABSOLUTE AUTO 0.42 K/mm3 (0.16-1.47); MONOCYTES PERCENT AUTO 3 % (4-13); Mean Corpuscular HGB 28.5 pg (26.0-34.0); Mean Corpuscular HGB Conc 32.1 g/dL (31.5-36.5); Mean Corpuscular Volume 89 fL (80-100); Mean Platelet Volume 10.8 fL (9.1-12.4); NEUTROPHILS ABSOLUTE AUTO 11.03 K/mm3 (1.96-9.15); NEUTROPHILS PERCENT AUTO 88 % (41-73); Platelet Count 244 K/mm3 (150-400); RDW Coefficient Variation 16.2 % (11.7-14.2); RDW Standard Deviation 52.1 fL (35.1-46.3); Red Blood Cell Count 3.33 M/mm3 (4.30-5.90); White Blood Cell Count 12.52 K/mm3 (4.00-11.30)
--- NOTE | 2019-01-26 05:30 | NUR ---
SHIFT SUMMARY PT PLEASANT, COOPERATIVE AND USES CALL LIGHT APPROPRIATELY. PT REMAINS A&OX4, ALTHOUGH HAD SLIGHT INCREASED CONFUSION INTERMITTENTLY. PT ASSESSMENT FINDINGS REMAIN UNCHANGED. VITAL SIGNS REMAIN STABLE. PT HAS BEEN ON ROOM AIR SINCE ABOUT HALF WAY THROUGH THE SHIFT AND OXYGEN SATS IN 90'S. COSME REMAINS IN PLACE, PATENT AND DRAINING. PT CONTINUED TO REFUSED TURNS SINCE START OF SHIFT. CONTINUED TO TALK WITH PATIENT ABOUT BENFITS OF TURNING AND MAINTAINING SKIN INTEGRUITY. PT RESTING AT THIS TIME. BED IN LOW POSITION, CALL LIGHT IN REACH AND PT DENIES ANY NEEDS AT THIS TIME. WILL CONTINUE TO MONITOR UNTIL HANDOFF TO DAYSHIFT RN.
[2019-01-26 11:53] LABS: Alanine Aminotransfer (ALT/SGP 17 U/L (12-78); Albumin, Blood 2.2 g/dL (3.4-5.0); Albumin/Globulin Ratio 0.7 (0.8-1.8); Alk Phos 47 U/L (50-136); Anion Gap 13 mmol/L (6-16); Aspartate Aminotrans (AST/SGOT 24 U/L (12-37); Bilirubin, Total 0.9 mg/dL (0.1-1.0); Blood Urea Nitrogen 22 mg/dL (8-24); Bun/Creatinine Ratio 34.2 (12.0-20.0); CO2, Blood 23 mmol/L (21-32); Calcium, Blood 7.9 mg/dL (8.5-10.1); Chloride, Blood 101 mmol/L (98-108); Creatinine, Blood 0.64 mg/dL (0.60-1.20); Glomerular Filtration Rate >60 (60-); Glucose, Blood 132 mg/dL (70-99); Potassium, Blood 3.7 mmol/L (3.5-5.5); Sodium, Blood 137 mmol/L (136-145); Total Protein, Blood 5.2 g/dL (6.4-8.2)
--- NOTE | 2019-01-26 14:10 | NUR ---
PT ASKING FOR HIS WALKER. STATES HE IS GOING TO GO OUTSIDE AND SMOKE. PT REMINDED THAT HE HAS NOT BEEN OUT OF BED SINCE HIS ADMISSION. PT ADAMANT THAT HE WILL GO OUTSIDE AND SMOKE WHEN HIS DAUGHTER GETS HERE. SPOKE WITH JOVANI FROM PT, JOVANI STATES PT UNABLE TO STAND FROM SIDE OF BED. BED ALARM ON AT THIS TIME.
--- NOTE | 2019-01-26 16:46 | NUR ---
Pt visit this afternoon. Pt is A&Ox1. He is unable to give appropriate place, reason for stay, and current year. Pt reports 8/10 pain in his left foot. Libbby is present during conversation and reports Pt is receiving Tramodol. Pt reports tramodol manges his pain. Engaged in therapeutic discussion regarding goals of care. Asked Pt's thoughts regarding physical therapy's recommendation regarding SNF. Pt reports his goal is to go home and take care of his . Pt level of understanding to implications of this choice is questionable. As conversation continues Pt develops mild agitation. Received verbal permission from Pt to call and discuss goals of care with Kait. Spoke with Pt's bedside nurse Sarah and discussed case. Called and left voicemail on both phone numbers listed for requesting a return phone call. At this time consideration for Kait to help with decision making for goals of care due to Pt's confusion and level of understanding. Palliative Care will remain available.
--- NOTE | 2019-01-26 17:39 | NUR ---
[facility] Spiritual care initial visit: Stephie is non-adventism, but appeared to enjoy conversation/companionship. He is very concerned about his of 50 years. She is wheel-chair bound and "going blind." Stephie feels it is his duty to take care of her. Mostly, though, he wants to go home so he can "do things the way that works best for me. I don't want people telling me what to do." I suspect he also wants to be able to smoke and drink. Stephie is very proud of "most" of his 8 adult children. He says they are a strong support. Stephie admits he does not know why he continues to decline. But, he also beleives that he can only get better by doing things they way he sees fit. I will remain available.
--- NOTE | 2019-01-26 19:23 | NUR ---
SHIFT SUMMARY PT RESTING IN BED THROUGHOUT THE DAY. VSS. ALERT AND ORIENTED TO SELF AND TIME THIS AM. C/O 5/10 LEFT ANKLE PAIN, MEDICATED WITH SCHEDULED PAIN MEDS. LUNG SOUNDS CLEAR, NSR WITH PACs & PVCs RATE 80s PER TELEMETRY. COSME DRAINING YELLOW TO DARK YELLOW URINE THROUGHOUT THE DAY. COLOSTOMY APPARATUS CHANGED TODAY D/T BLOW OUT, SMALL AMOUNT OF DARK BROWN / BLACK STOOL IN BAG. EDEMA NOTED TO BLE AND SCROTUM, BUT APPEARS TO BE IMPROVING FROM THURSDAY. PT WEAK. WORKED WITH PHYSICAL THERAPY THIS MORNING, BUT PT UNABLE TO STAND. THIS AFTERNOON, PT STATES HE WANTS HIS WALKER SO HE CAN GO SMOKE. REORIENTED PT THAT HE WAS IN THE HOSPITAL AND HAD BEEN IN BED FOR NUMEROUS DAYS. PT STATES HE WANTS TO GO HOME BECAUSE HE NEEDS TO TAKE CARE OF HIS . PT BECOMES IRRITABLE WITH DISCUSSION OF DISCHARGE TO REHAB. WILL CONTINUE TO MONITOR.
[2019-01-27 04:17] LABS: BASOPHILS ABSOLUTE AUTO 0.01 K/mm3 (0.00-0.23); BASOPHILS PERCENT AUTO 0 % (0-2); EOSINOPHILS PERCENT AUTO 0 % (0-6); Hematocrit 29.5 % (37.0-53.0); Hemoglobin 9.7 g/dL (13.5-17.5); IMMATURE GRAN PERCENT AUTO 1 % (0-1); LYMPHOCYTES ABSOLUTE AUTO 1.12 K/mm3 (0.84-5.20); LYMPHOCYTES PERCENT AUTO 11 % (21-46); MONOCYTES ABSOLUTE AUTO 0.79 K/mm3 (0.16-1.47); MONOCYTES PERCENT AUTO 8 % (4-13); Mean Corpuscular HGB 28.9 pg (26.0-34.0); Mean Corpuscular HGB Conc 32.9 g/dL (31.5-36.5); Mean Corpuscular Volume 88 fL (80-100); Mean Platelet Volume 10.7 fL (9.1-12.4); NEUTROPHILS ABSOLUTE AUTO 8.38 K/mm3 (1.96-9.15); NEUTROPHILS PERCENT AUTO 81 % (41-73); Platelet Count 254 K/mm3 (150-400); RDW Coefficient Variation 15.9 % (11.7-14.2); RDW Standard Deviation 50.4 fL (35.1-46.3); Red Blood Cell Count 3.36 M/mm3 (4.30-5.90)
--- NOTE | 2019-01-27 05:58 | NUR ---
END OF SHIFT SUMMARY PT ALERT AND ORIENTED X2. WANING CONFUSION. HAS TO BE REORIENTEDS TO BEING IN HOSPITAL AND MAKES COMMENTS THAT DO NOT FIT SITUATION AT TIMES. PT'S MOOD LABILE. PT WAS BEING COOPERATIVE FOR BEGINNING OF SHIFT AND WAS ALLOWING STAFF TO TURN. PRESSURE INJUIRY NOTED TO COCCYX, AREA CLEANED AND MEPILEX PLACED. PT BEGAN TO REFUSE TURNS AND HAS CONTINUED TO SO SINCE AROUND 2200. PT PULLED IV OUT AND HAS REFUSED THIS NURSE TO PLACE ANOTHER ONE AND REFUSED THE IV ABX WELL DESPITE CONSTANT EDUCATION BY THIS NURSE. PT HAS BEEN ANGRY WITH STAFF MULTIPLE TIMES THIS SHIFT AND HAS TOLD THEM TO GET OUT OF HIS ROOM. WHEN IN ROOM TO TALK TO PT, GENERALLY IS WILLING TO TALK NICELY IF NOT WANTING MOVE OR DO ANYTHING ELSE WITH PATIENT. COLOSTOMY HAQS LITTLE OUTPUT. COSME PATENT WITH LARGE OUTPUT. NO BM THIS SHIFT. CALL LIGHT WITHIN REACH AT ALL TIMES. VSS. BED ALARM IN PLACE. WILL CONTINUE TO MONITOR PT UNTIL SHIFT CHANGE.
--- NOTE | 2019-01-27 08:30 | NUR ---
AM NOTE PT IS CURRENTLY RESTING IN BED, ALERT AND ORIENTED TO SELF, PLACE/TOWN, AND FOLLOWING DIRECTIONS. DISORIENTED TO EVENT AND YEAR CURRENTLY. VSS. PT IS IRRITABLE AND REFUSING IV PLACEMENT FOR ANTIBIOTIC TREATMENT. PHYSICIAN AWARE AND INPUTTING ORDERS FOR PO ANTIBIOTICS AND LASIX FOR CONTINUED TREATMENT AT THIS TIME. COSME IS PATENT AND DRAINING TO GRAVITY. PT IS REFUSING TURNING AND REFUSING SKIN ASSESSMENT OF COCCYX THIS MORNING. LUNG SOUNDS ARE CLEAR IN UPPER LOBES, DIMINISHED IN THE BASES. PT EDUCATED ON SKIN INTEGRITY AND EDUCATED ON UTILIZING MOVEMENT AND AMBULATION TO IMPROVE CURRENT CONDITION. PT REQUESTING TO BE LEFT ALONE AT THIS TIME AND GROWNING INCREASINGLY IRRITABLE. PT INFORMED THAT STAFF WILL CONTINUE TO CHECK ON HIM AND REASSESS. WILL CONTINUE WITH MONITORING. BED IN LOWEST POSITION, CALL LIGHT IN REACH.
--- NOTE | 2019-01-27 11:45 | NUR ---
PT TRANSFER REPORT CALLED TO YOGI SILVA FOR PATIENT TRANSFER TO ROOM 364. PT INFORMED OF ROOM TRANFER AND EDUCATED ON REASONING. PT ENCOURAGED TO CONTINUE WITH MOBILAZATION AND PARTICIPATE IN PT/OT TO SPEED RECOVERY AND DISCHARGE PROCESS. PT RECEPTIVE TO INFORMATION AND VERBALIZES UNDERSTANDING AT THIS TIME. PT REQUESTING THAT SPOUSE BE INFORMED OF ROOM TRANSFER. WILL CONTACT AND TRANSFER PT AFTER LUNCH. BED IN LOWEST POSITION, CALL LIGHT IN REACH.
--- NOTE | 2019-01-27 12:32 | NUR ---
FAMILY UPDATED PER PT REQUEST, SPOUSE CALLED AND INFORMED OF ROOM TRANSFER.
[2019-01-27 13:19] LABS: Alanine Aminotransfer (ALT/SGP 19 U/L (12-78); Albumin, Blood 2.3 g/dL (3.4-5.0); Albumin/Globulin Ratio 0.8 (0.8-1.8); Alk Phos 42 U/L (50-136); Anion Gap 12 mmol/L (6-16); Aspartate Aminotrans (AST/SGOT 24 U/L (12-37); Bilirubin, Total 0.6 mg/dL (0.1-1.0); Blood Urea Nitrogen 18 mg/dL (8-24); Bun/Creatinine Ratio 26.8 (12.0-20.0); CO2, Blood 29 mmol/L (21-32); Calcium, Blood 7.9 mg/dL (8.5-10.1); Chloride, Blood 96 mmol/L (98-108); Creatinine, Blood 0.67 mg/dL (0.60-1.20); Globulin, Blood 2.9 g/dL (2.2-4.0); Glomerular Filtration Rate >60 (60-); Glucose, Blood 100 mg/dL (70-99); Potassium, Blood 3.2 mmol/L (3.5-5.5); Sodium, Blood 137 mmol/L (136-145); Total Protein, Blood 5.2 g/dL (6.4-8.2)
--- NOTE | 2019-01-27 15:10 | NUR ---
Pt visit this afternoon. Pt is resting in bed upon arrival. Pt appears comfortable with no S/S of distress at this time. Pt remains confused and is A&Ox1. Pt's Kait and son present during visit. Kait reports that Pt is agreeable to going to [facility] for rehabilitation. Kait inquires about an advanced directive. Handed Kait AD and educated on sections to complete. She reports her and her son will discuss completing AD. No other concerns reported at this time. Spoke with caremanurmila Akbar and discussed case. Naomie reports she is working on insurance aspect of SNF. Palliative Care will remain available.
--- NOTE | 2019-01-27 18:08 | NUR ---
SUMMARY PT TRANSFERRED UP FROM PCU, PT UNABLE TO STAND TO TRANSFER, SLID THE PT FROM BED TO BED, PT WORKED WITH PT/OT, RECOMMENDATION OF SNF, PT POSSIBLY AGREEABLE TO GO TO [facility], PT'S FAMILY CAME IN TO VISIT, THEY INDICATED PT CANNOT RETURN HOME IF UNABLE TO AMBULATE THERE WILL NOT BE SOMEONE THERE TO TAKE CARE OF HIM, DISCHARGE PLANNING INVOLVED AND AWARE, PT DECLINES TO BE TURNED AND REPOSITIONED MOST OF THE TIME, BUT HAS BEEN PLEASANT AND COOPERATIVE WITH MOST CARE, VSS, NO ACUTE CHANGES, WILL CONT TO MONITOR
--- NOTE | 2019-01-28 04:35 | NUR ---
SHIFT SUMMARY PT HAD SOME LOWER BP'S THIS SHIFT, THAT WAS POSSIBLY ATTRIBUTED TO A BP CUP THAT WAS SLIGHLY TOO LARGE. BP CUFF EXCHANGED AND READINGS WERE IMPROVED. BP ON THE LOWER SIDE BUT APPROPRIATE. BP MONITORED T/O THE NIGHT. PT HAS DENIED PAIN OR NEEDS T/O THE NIGHT. OSTOMY NEGATIVE FOR BLEEDING. PT HAS BEEN A/OX4 AND APPROPRIATE. COSME IN PLACE PATENT AND DRAINING. TELE DC'D THIS SHIFT. ASSESSMENT HAS OTHERWISE REMAINED UNCHANGED. WILL CONTINUE TO MONITOR AND REPORT TO ONCOMING RN.
[2019-01-28 05:00] LABS: BASOPHILS ABSOLUTE AUTO 0.01 K/mm3 (0.00-0.23); BASOPHILS PERCENT AUTO 0 % (0-2); EOSINOPHILS PERCENT AUTO 0 % (0-6); Hematocrit 31.9 % (37.0-53.0); Hemoglobin 10.6 g/dL (13.5-17.5); IMMATURE GRAN ABSOLUTE AUTO 0.08 K/mm3 (0.00-0.10); IMMATURE GRAN PERCENT AUTO 1 % (0-1); LYMPHOCYTES ABSOLUTE AUTO 0.99 K/mm3 (0.84-5.20); LYMPHOCYTES PERCENT AUTO 10 % (21-46); MONOCYTES ABSOLUTE AUTO 0.55 K/mm3 (0.16-1.47); MONOCYTES PERCENT AUTO 6 % (4-13); Mean Corpuscular HGB 28.5 pg (26.0-34.0); Mean Corpuscular HGB Conc 33.2 g/dL (31.5-36.5); Mean Corpuscular Volume 86 fL (80-100); Mean Platelet Volume 10.9 fL (9.1-12.4); NEUTROPHILS ABSOLUTE AUTO 8.07 K/mm3 (1.96-9.15); NEUTROPHILS PERCENT AUTO 83 % (41-73); Platelet Count 249 K/mm3 (150-400); RDW Coefficient Variation 15.5 % (11.7-14.2); RDW Standard Deviation 47.6 fL (35.1-46.3); Red Blood Cell Count 3.72 M/mm3 (4.30-5.90)
[2019-01-28 10:27] LABS: Alanine Aminotransfer (ALT/SGP 18 U/L (12-78); Albumin, Blood 2.2 g/dL (3.4-5.0); Albumin/Globulin Ratio 0.8 (0.8-1.8); Alk Phos 41 U/L (50-136); Anion Gap 8 mmol/L (6-16); Aspartate Aminotrans (AST/SGOT 23 U/L (12-37); Bilirubin, Total 0.8 mg/dL (0.1-1.0); Blood Urea Nitrogen 11 mg/dL (8-24); Bun/Creatinine Ratio 18.4 (12.0-20.0); CO2, Blood 33 mmol/L (21-32); Calcium, Blood 8.1 mg/dL (8.5-10.1); Chloride, Blood 93 mmol/L (98-108); Globulin, Blood 2.8 g/dL (2.2-4.0); Glomerular Filtration Rate >60 (60-); Glucose, Blood 93 mg/dL (70-99); Potassium, Blood 2.8 mmol/L (3.5-5.5); Sodium, Blood 134 mmol/L (136-145)
[2019-01-28 16:18] LABS: Anion Gap 6 mmol/L (6-16); Blood Urea Nitrogen 10 mg/dL (8-24); CO2, Blood 34 mmol/L (21-32); Calcium, Blood 8.1 mg/dL (8.5-10.1); Chloride, Blood 92 mmol/L (98-108); Creatinine, Blood 0.67 mg/dL (0.60-1.20); Glomerular Filtration Rate >60 (60-); Glucose, Blood 118 mg/dL (70-99); Potassium, Blood 3.3 mmol/L (3.5-5.5); Sodium, Blood 132 mmol/L (136-145)
--- NOTE | 2019-01-28 18:24 | NUR ---
SUMMARY PT AWAKE IN BED EATING HIS DINNER, PT HAS BEEN PLEASANT AND COOPERATIVE WITH CARE T/O THE DAY, DOES NOT LIKE TO BE TURNED FREQUENTLY AND WILL REFUSE, DRESSING TO THE COCCYX CHANGED SEVERAL TIMES, VERY LITTLE OUTPUT FROM THE OSTOMY, PT DOES LEAK LIQUID STOOL FROM HIS RECTUM, ATTENDS IN PLACE, GOOD URINE OUTPUT, POOR APPETITE, DISCHARGE PLANNING WORKING ON A DISCHARGE PLAN TO THE [facility] REHAB, VSS, NO ACUTE CHANGES, WILL CONT TO MONITOR
[2019-01-29 04:39] LABS: BASOPHILS ABSOLUTE AUTO 0.02 K/mm3 (0.00-0.23); BASOPHILS PERCENT AUTO 0 % (0-2); EOSINOPHILS ABSOLUTE AUTO 0.01 K/mm3 (0.00-0.68); EOSINOPHILS PERCENT AUTO 0 % (0-6); Hematocrit 31.5 % (37.0-53.0); Hemoglobin 10.5 g/dL (13.5-17.5); IMMATURE GRAN ABSOLUTE AUTO 0.08 K/mm3 (0.00-0.10); IMMATURE GRAN PERCENT AUTO 1 % (0-1); LYMPHOCYTES ABSOLUTE AUTO 1.58 K/mm3 (0.84-5.20); LYMPHOCYTES PERCENT AUTO 12 % (21-46); MONOCYTES PERCENT AUTO 5 % (4-13); Mean Corpuscular HGB 28.9 pg (26.0-34.0); Mean Corpuscular HGB Conc 33.3 g/dL (31.5-36.5); Mean Corpuscular Volume 87 fL (80-100); Mean Platelet Volume 10.6 fL (9.1-12.4); NEUTROPHILS ABSOLUTE AUTO 10.55 K/mm3 (1.96-9.15); NEUTROPHILS PERCENT AUTO 82 % (41-73); Platelet Count 222 K/mm3 (150-400); RDW Coefficient Variation 15.6 % (11.7-14.2); Red Blood Cell Count 3.63 M/mm3 (4.30-5.90); White Blood Cell Count 12.84 K/mm3 (4.00-11.30)
[2019-01-29 05:03] LABS: Anion Gap 8 mmol/L (6-16); Blood Urea Nitrogen 10 mg/dL (8-24); CO2, Blood 31 mmol/L (21-32); Calcium, Blood 7.7 mg/dL (8.5-10.1); Chloride, Blood 93 mmol/L (98-108); Creatinine, Blood 0.62 mg/dL (0.60-1.20); Glomerular Filtration Rate >60 (60-); Glucose, Blood 106 mg/dL (70-99); Magnesium, Blood 1.3 mg/dL (1.6-2.4); Potassium, Blood 2.8 mmol/L (3.5-5.5); Sodium, Blood 132 mmol/L (136-145)
--- NOTE | 2019-01-29 05:05 | NUR ---
SHIFT SUMMARY PT WAS PER DAY RN A NO IV PT. THERE WAS NO ORDER NOTED. PT IS A FULL CODE WELL. PT WAS FOUND TO BE HYPOTENSIVE. PROVIDER CALLED AND IV ESTABLISHED AND FLUIDS GIVEN ORDERED. PT BP IMPROVED. PT HAS SLEPT WELL T/O SHIFT. PT CURRENTLY SLEEPING IN NO DISTRESS. CALL LIGHT IN REACH.
[2019-01-29 11:10] LABS: Alanine Aminotransfer (ALT/SGP 11 U/L (12-78); Albumin/Globulin Ratio 0.7 (0.8-1.8); Alk Phos 47 U/L (50-136); Anion Gap 8 mmol/L (6-16); Aspartate Aminotrans (AST/SGOT 21 U/L (12-37); Bilirubin, Total 0.8 mg/dL (0.1-1.0); Blood Urea Nitrogen 10 mg/dL (8-24); Bun/Creatinine Ratio 16.8 (12.0-20.0); CO2, Blood 28 mmol/L (21-32); Calcium, Blood 7.6 mg/dL (8.5-10.1); Chloride, Blood 92 mmol/L (98-108); Glomerular Filtration Rate >60 (60-); Glucose, Blood 132 mg/dL (70-99); Potassium, Blood 3.5 mmol/L (3.5-5.5); Sodium, Blood 128 mmol/L (136-145)
--- NOTE | 2019-01-29 14:39 | NUR ---
LEFT WRIST 22G IN PLACE UPON RECEIVING REPORT FROM OFFGOING RN. SITE HEALTHY.
--- NOTE | 2019-01-29 18:19 | NUR ---
SHIFT SUMMARY IRRITABLE AND C/O PAIN WITH MOVEMENT (RELIEVED BY REST). REPLACEMENT OF ELECTROLYTES THROUGHOUT DAY. VERY LITTLE SOLID FOOD TODAY BUT TAKING FLUIDS. FAMILY TO VISIT AND UPSET BY PT NOT PARTICIPATING IN CARE. 1 LITER FLUID BOLUS RUNNING FOR LOW NA. NEEDS SNIF PLACEMENT. FULL CODE.
--- NOTE | 2019-01-30 05:08 | NUR ---
SHIFT SUMMARY PT SLEPT MOST OF SHIFT. PT CONTINUES TO HAVE ISSUES WITH SKIN BREAKDOWN AREAS. PT WAS CONFUSED TO WHERE HE WAS AND WHY HE IS IN HOSPITAL. PT IS AGITATED WITH BEING CHANGED AND DRESSINGS CHANGED. PT MEDICATED FOR DISCOMFORT WITH GOOD RELIEF. PT CURRENTLY SLEEPING AND IN NO DISTRESS. CALL LIGHT IN REACH.
[2019-01-30 06:33] LABS: BASOPHILS ABSOLUTE AUTO 0.01 K/mm3 (0.00-0.23); BASOPHILS PERCENT AUTO 0 % (0-2); EOSINOPHILS ABSOLUTE AUTO 0.04 K/mm3 (0.00-0.68); EOSINOPHILS PERCENT AUTO 0 % (0-6); Hematocrit 30.1 % (37.0-53.0); Hemoglobin 9.8 g/dL (13.5-17.5); IMMATURE GRAN ABSOLUTE AUTO 0.07 K/mm3 (0.00-0.10); IMMATURE GRAN PERCENT AUTO 1 % (0-1); LYMPHOCYTES ABSOLUTE AUTO 1.39 K/mm3 (0.84-5.20); LYMPHOCYTES PERCENT AUTO 13 % (21-46); MONOCYTES ABSOLUTE AUTO 0.51 K/mm3 (0.16-1.47); MONOCYTES PERCENT AUTO 5 % (4-13); Mean Corpuscular HGB 28.5 pg (26.0-34.0); Mean Corpuscular HGB Conc 32.6 g/dL (31.5-36.5); Mean Corpuscular Volume 88 fL (80-100); Mean Platelet Volume 10.9 fL (9.1-12.4); NEUTROPHILS ABSOLUTE AUTO 8.99 K/mm3 (1.96-9.15); NEUTROPHILS PERCENT AUTO 82 % (41-73); Platelet Count 233 K/mm3 (150-400); RDW Coefficient Variation 16.2 % (11.7-14.2); RDW Standard Deviation 50.4 fL (35.1-46.3); Red Blood Cell Count 3.44 M/mm3 (4.30-5.90); White Blood Cell Count 11.01 K/mm3 (4.00-11.30)
[2019-01-30 06:51] LABS: Alanine Aminotransfer (ALT/SGP 15 U/L (12-78); Albumin, Blood 2.1 g/dL (3.4-5.0); Albumin/Globulin Ratio 0.8 (0.8-1.8); Alk Phos 49 U/L (50-136); Anion Gap 6 mmol/L (6-16); Aspartate Aminotrans (AST/SGOT 14 U/L (12-37); Bilirubin, Total 0.7 mg/dL (0.1-1.0); Blood Urea Nitrogen 13 mg/dL (8-24); Bun/Creatinine Ratio 20.3 (12.0-20.0); CO2, Blood 30 mmol/L (21-32); Calcium, Blood 7.5 mg/dL (8.5-10.1); Chloride, Blood 98 mmol/L (98-108); Creatinine, Blood 0.64 mg/dL (0.60-1.20); Globulin, Blood 2.7 g/dL (2.2-4.0); Glomerular Filtration Rate >60 (60-); Glucose, Blood 110 mg/dL (70-99); Potassium, Blood 3.8 mmol/L (3.5-5.5); Sodium, Blood 134 mmol/L (136-145); Total Protein, Blood 4.8 g/dL (6.4-8.2)
--- NOTE | 2019-01-30 07:32 | NUR ---
RECEIVED REPORT FROM YOGI ROPER. PT AWAKE ALERT AND ABLE TO STATES NAME, , PLACE, DATE, PRESIDENT AND SITUATION.
--- NOTE | 2019-01-30 16:28 | NUR ---
pt not wanting to eat more painfull and less active. will contact about prognosis. He keeps saysing he wants to go home pps score 30%
--- NOTE | 2019-01-30 17:46 | NUR ---
SHIFT SUMMARY AGITATED AND IRRITABLE TODAY. GENERALIZED PAIN WITH ANY MOVEMENT OR INTERVENTIONS. COSME DRAINING YELLOW URINE. VERY SMALL AMOUNT OF OUTPUT PER COLOSTOMY. VERY LITTLE INTAKE ONLY SMALL SIPS OF ENSURE AND WATER TODAY. PALLIATIVE CARE VISIT. SPOUSE AND FAMILY NEED TO TALK WITH PALLIATIVE CARE NURSE ABOUT PLAN. FULL CODE. REFUSING TURNS.
--- NOTE | 2019-01-30 22:19 | NUR ---
PT HAVING INCREASED ABD PAIN AROUND STOMA SITE. STOMA APPEARS TO BE PROLAPSED WILL TX PAIN PER EMAR AND ASSESS STOMA SITE.
--- NOTE | 2019-01-30 22:49 | NUR ---
DR KIRK CALLED ABOUT PT PROLAPSED STOMA. OT ORDER OF 25 MCG FENTANYL WAS GIVEN.
[2019-01-31 04:48] LABS: BASOPHILS ABSOLUTE AUTO 0.02 K/mm3 (0.00-0.23); BASOPHILS PERCENT AUTO 0 % (0-2); EOSINOPHILS ABSOLUTE AUTO 0.05 K/mm3 (0.00-0.68); EOSINOPHILS PERCENT AUTO 1 % (0-6); Hematocrit 30.2 % (37.0-53.0); Hemoglobin 9.7 g/dL (13.5-17.5); IMMATURE GRAN ABSOLUTE AUTO 0.08 K/mm3 (0.00-0.10); IMMATURE GRAN PERCENT AUTO 1 % (0-1); LYMPHOCYTES ABSOLUTE AUTO 1.59 K/mm3 (0.84-5.20); LYMPHOCYTES PERCENT AUTO 16 % (21-46); MONOCYTES ABSOLUTE AUTO 0.59 K/mm3 (0.16-1.47); MONOCYTES PERCENT AUTO 6 % (4-13); Mean Corpuscular HGB Conc 32.1 g/dL (31.5-36.5); Mean Corpuscular Volume 90 fL (80-100); NEUTROPHILS ABSOLUTE AUTO 7.81 K/mm3 (1.96-9.15); NEUTROPHILS PERCENT AUTO 77 % (41-73); Platelet Count 234 K/mm3 (150-400); RDW Coefficient Variation 16.4 % (11.7-14.2); RDW Standard Deviation 52.6 fL (35.1-46.3); Red Blood Cell Count 3.34 M/mm3 (4.30-5.90); White Blood Cell Count 10.14 K/mm3 (4.00-11.30)
--- NOTE | 2019-01-31 05:06 | NUR ---
SHIFT SUMMARY PT BEGAN HAVING INCREASED ABD PAIN AT COLOSTOMY SITE. PT STOMA IS PROLAPSED WITH NO BLOOD OR DISCOLORATION NOTED. PT STATES HE HAS HX OF SIMILAR ISSUE IN THE PAST. DR. KIRK WAS CALLED AND INFORMED. SHE ORDERED A OT DOSE OF ADDITIONAL FENTANYL. PT HAS BEEN BEEN GETTING FENTANYL PER EMAR WITH RELIEF THAT IS SHORT IN DURATION. PT HAS BEEN ABLE TO SLEEP. PT CURRENTLY COMPLAINING OF DISCOMFORT AND WILL BE TX SOON. CALL LIGHT IN REACH
[2019-01-31 05:10] LABS: Alanine Aminotransfer (ALT/SGP 15 U/L (12-78); Albumin, Blood 2.1 g/dL (3.4-5.0); Albumin/Globulin Ratio 0.7 (0.8-1.8); Alk Phos 54 U/L (50-136); Anion Gap 7 mmol/L (6-16); Aspartate Aminotrans (AST/SGOT 15 U/L (12-37); Bilirubin, Total 0.6 mg/dL (0.1-1.0); Blood Urea Nitrogen 13 mg/dL (8-24); Bun/Creatinine Ratio 18.1 (12.0-20.0); CO2, Blood 27 mmol/L (21-32); Calcium, Blood 7.6 mg/dL (8.5-10.1); Chloride, Blood 100 mmol/L (98-108); Creatinine, Blood 0.72 mg/dL (0.60-1.20); Glomerular Filtration Rate >60 (60-); Glucose, Blood 84 mg/dL (70-99); Potassium, Blood 4.3 mmol/L (3.5-5.5); Sodium, Blood 134 mmol/L (136-145); Total Protein, Blood 5.1 g/dL (6.4-8.2)
--- NOTE | 2019-01-31 16:57 | NUR ---
Clinical Visit: Pt and his family are finished filling out advance directive and are requiring signatures. IDs checked and signatures done. Reviewed all choices of adv dir with pt. He confirms his choices. He is slow to respond, oriented to self, family, place. He is aware he is at the hospital. No other concerns. Pt denies pain. Will remain available.
--- NOTE | 2019-01-31 17:27 | NUR ---
Clinical Visit: Pt's granddaughter had some further conversation with this RN. She is asking about him staying here, about his placement. SHe states her grandmother is upset about what is happening and is confused about placment and options. She has spoken to Naomie, data processing systems project planner before, but is unclear about OHP and insurance things. Will send message to Tamara for follow up, however, it is late in the day and conversation cannot happen until tomorrow. Spoke to pt by himself. Reviewed advance directives again. He states that he doesn't want to change his code status, confirms code status. He is conversing easily with me now, and is actually laughing and joking at this time. Inquired about pain, he states that he is sore and moves around in the bed, repositioning himself. Asked him about hospice. He states, "I have to talk to my about that. I don't make decisions about that without her." Reviewed chart. Pt appears lucid at this time. Pt is getting fentanyl at this time for pain. He has not had pain medication today at all.
--- NOTE | 2019-01-31 18:12 | NUR ---
SHIFT SUMMARY PT AXO TO SELF, FAMILY AND FOLLOWING DIRECTIONS THOUGH AT TIMES HE IS CONFUSED/CANNOT RECALL. VSS. AT 1630 THE BP WAS DOCUMENTED HYPOTENSIVE AT 91/61 THOUGH CASTING AND CURING OPERATOR WAS ASKED TO RECHECK ON OTHER ARM. NURSE AWAITING RESULTS AT THIS TIME. PT CONTINUES TO HAVE DECREASED APPETITE. FR LESTER NOTIFIED AND HOME DOSE OF REMERON ORDERED STATES THAT INCREASES HIS APPETITE WELL. PT HAS DECUB ON BOTTOM AND HEELS BILATERALLY. MEPILEX IN PLACE. PT OPPOSITIONAL TO REPOSITIONING THOUGH NURSE AND CASTING AND CURING OPERATOR WERE ABLE TO AT TIMES. BED IN LOW POSITION, CALL LIGHT WITHIN REACH. GRANDDAUGHTER HELPED TO ENCOURAGE PT TO EAT DINNER.
[2019-02-01 04:35] LABS: BASOPHILS ABSOLUTE AUTO 0.02 K/mm3 (0.00-0.23); BASOPHILS PERCENT AUTO 0 % (0-2); EOSINOPHILS ABSOLUTE AUTO 0.06 K/mm3 (0.00-0.68); EOSINOPHILS PERCENT AUTO 1 % (0-6); Hematocrit 30.6 % (37.0-53.0); Hemoglobin 9.9 g/dL (13.5-17.5); IMMATURE GRAN ABSOLUTE AUTO 0.09 K/mm3 (0.00-0.10); IMMATURE GRAN PERCENT AUTO 1 % (0-1); LYMPHOCYTES ABSOLUTE AUTO 2.24 K/mm3 (0.84-5.20); LYMPHOCYTES PERCENT AUTO 21 % (21-46); MONOCYTES ABSOLUTE AUTO 0.88 K/mm3 (0.16-1.47); MONOCYTES PERCENT AUTO 8 % (4-13); Mean Corpuscular HGB 28.7 pg (26.0-34.0); Mean Corpuscular HGB Conc 32.4 g/dL (31.5-36.5); Mean Corpuscular Volume 89 fL (80-100); Mean Platelet Volume 10.4 fL (9.1-12.4); NEUTROPHILS ABSOLUTE AUTO 7.28 K/mm3 (1.96-9.15); NEUTROPHILS PERCENT AUTO 69 % (41-73); Platelet Count 272 K/mm3 (150-400); RDW Coefficient Variation 16.4 % (11.7-14.2); RDW Standard Deviation 52.9 fL (35.1-46.3); Red Blood Cell Count 3.45 M/mm3 (4.30-5.90); White Blood Cell Count 10.57 K/mm3 (4.00-11.30)
[2019-02-01 04:54] LABS: Alanine Aminotransfer (ALT/SGP 14 U/L (12-78); Albumin, Blood 2.2 g/dL (3.4-5.0); Albumin/Globulin Ratio 0.7 (0.8-1.8); Alk Phos 58 U/L (50-136); Anion Gap 6 mmol/L (6-16); Aspartate Aminotrans (AST/SGOT 12 U/L (12-37); Bilirubin, Total 0.7 mg/dL (0.1-1.0); Blood Urea Nitrogen 12 mg/dL (8-24); Bun/Creatinine Ratio 16.2 (12.0-20.0); CO2, Blood 28 mmol/L (21-32); Calcium, Blood 7.8 mg/dL (8.5-10.1); Chloride, Blood 99 mmol/L (98-108); Creatinine, Blood 0.74 mg/dL (0.60-1.20); Glomerular Filtration Rate >60 (60-); Glucose, Blood 68 mg/dL (70-99); Potassium, Blood 4.3 mmol/L (3.5-5.5); Sodium, Blood 133 mmol/L (136-145); Total Protein, Blood 5.2 g/dL (6.4-8.2)
--- NOTE | 2019-02-01 05:51 | NUR ---
SHIFT SUMMARY: PT IS ALERT AND CONFUSED. PT IS INTERMITTENTLY COOPERATIVE WITH CARE, WAS UNABLE TO GET HIM TO TAKE MORNING MEDICATIONS. PT IS TOO WEAK TO GET OUT OF BED AT THIS TIME. COSME PATENT AND DRAINING YELLOW URINE. PT REPORTS PAIN ON SEVERAL OCCASIONS, MEDICATING PER EMAR. PT HAD TEMP OF 101 THIS AM, WAS ONLY ABLE TO GET HIM TO TAKE HALF THE ORDERED DOSE OF TYLENOL. PT SHOWS NO S/S FOR NAUSEA, VOMITING, OR SOB. BED IN LOW POSITION, CALL LIGHT WITHIN REACH. WILL CONTINUE TO MONITOR.
--- NOTE | 2019-02-01 10:28 | NUR ---
PATIENT DID NOT EAT BREAKFAST THIS SHIFT. PATIENT DENIED HIS TRAY. RN NOTIFIED.
--- NOTE | 2019-02-01 17:26 | NUR ---
Clinical Visit: Pt is resting with eyes closed. He wakes up to voice cue. He states he is tired. Discussed briefly his afternoon. He tells me that his family has been in all afternoon and he is now wanting to rest. Spoke to Tamara, child care assistant. Pt very appropriate for hospice care, but has not wanted to do that yet.
--- NOTE | 2019-02-01 18:50 | NUR ---
SHIFT SUMMARY PT UP TO SIDE OF BED TWICE TODAY WITH P.T. AND O.T. FAMILY AT BEDSIDE TODAY AND DAUGHTER BROUGHT HIS LUNCH WITH HIME EATING HALF A BANANA AND MORE THAN HALF A SMALL CONTAINER OF POTATOS AND GREEN GALLARDO CASSEROLE. DAUGHTER REPORTS HE HAS EATEN MORE THAN HE HAS IN SEVERAL DAYS FROM WHAT SHE HAS NOTICED. PT OBJECTIONABLE ABOUT TAKING MEDS AND GOING ANY ACTIVITY INCLUDING EATING WITHOUT BEING FREQUENTLY CUED. SLEEPING WHEN LEFT ALONE. DRESSINGS INTACT TO WOUNDS. NO S/S OF PAIN OR DISCOMFORT. GAS RELEASED FROM OSTOMY BAG.
--- NOTE | 2019-02-01 20:03 | NUR ---
ASSUMED CARE OF PATIENT. PATIENT STATES PAIN IS "REALLY BAD" IN HIS ABDOMEN. WILL MEDICATE PER EMAR. RT ARRIVED TO GIVE HIS BREATHING TREATIMENT. #22 LFA C/D/I. BED LOW, LOCKED AND ALARMED. CALL SEXTON WITHIN REACH
[2019-02-02 04:39] LABS: BASOPHILS ABSOLUTE AUTO 0.02 K/mm3 (0.00-0.23); BASOPHILS PERCENT AUTO 0 % (0-2); EOSINOPHILS ABSOLUTE AUTO 0.02 K/mm3 (0.00-0.68); EOSINOPHILS PERCENT AUTO 0 % (0-6); Hematocrit 33.1 % (37.0-53.0); Hemoglobin 10.8 g/dL (13.5-17.5); IMMATURE GRAN ABSOLUTE AUTO 0.11 K/mm3 (0.00-0.10); IMMATURE GRAN PERCENT AUTO 1 % (0-1); LYMPHOCYTES PERCENT AUTO 19 % (21-46); MONOCYTES ABSOLUTE AUTO 1.08 K/mm3 (0.16-1.47); MONOCYTES PERCENT AUTO 8 % (4-13); Mean Corpuscular HGB Conc 32.6 g/dL (31.5-36.5); Mean Corpuscular Volume 89 fL (80-100); Mean Platelet Volume 9.9 fL (9.1-12.4); NEUTROPHILS ABSOLUTE AUTO 9.37 K/mm3 (1.96-9.15); NEUTROPHILS PERCENT AUTO 72 % (41-73); Platelet Count 289 K/mm3 (150-400); RDW Coefficient Variation 16.1 % (11.7-14.2); RDW Standard Deviation 51.8 fL (35.1-46.3); Red Blood Cell Count 3.73 M/mm3 (4.30-5.90)
[2019-02-02 05:00] LABS: Alanine Aminotransfer (ALT/SGP 13 U/L (12-78); Albumin, Blood 2.1 g/dL (3.4-5.0); Albumin/Globulin Ratio 0.6 (0.8-1.8); Alk Phos 59 U/L (50-136); Anion Gap 10 mmol/L (6-16); Aspartate Aminotrans (AST/SGOT 19 U/L (12-37); Bilirubin, Total 0.8 mg/dL (0.1-1.0); Blood Urea Nitrogen 11 mg/dL (8-24); Bun/Creatinine Ratio 13.7 (12.0-20.0); CO2, Blood 26 mmol/L (21-32); Calcium, Blood 7.9 mg/dL (8.5-10.1); Chloride, Blood 97 mmol/L (98-108); Globulin, Blood 3.4 g/dL (2.2-4.0); Glomerular Filtration Rate >60 (60-); Glucose, Blood 78 mg/dL (70-99); Potassium, Blood 3.8 mmol/L (3.5-5.5); Sodium, Blood 133 mmol/L (136-145); Total Protein, Blood 5.5 g/dL (6.4-8.2)
--- NOTE | 2019-02-02 05:40 | NUR ---
PT SLEPT LITTLE THIS SHIFT. PT C/O PAIN WHENEVER HE IS TOUCHED OR MOVED. REFUSED TO LET US TURN HIM BUT WE DID INSIST ON TURNING HIM AT LEAST ONCE THIS SHIFT/ DID CATH CARE AND REMOVED ALOT OF DRIED ON ORANGE CREAM. SOAKED IT TO REMOVE ALL THAT WAS STUCK UNDER THE PATIENTS FORESKIN. APPLIED A SMALL AMOUNT OF VASELINE ONITMENT. THEN TURNED PATIENT AND REMOVED BANDAGES THAT WERE LEAKING FOUL SMELLING SEROSANGUINOUS FLUID. WASHED WOUNDS WITH SALINE. PLACED A SACRAL MEPLEX TO THE LEFT BUTTOCK AND THE CREVICE BETWEEN THE LEFT CROIN AND THE LEFT INNER THIGH. PAIN MED GIVEN PER EMAR. PT REFUSED AM MED THIS MORNING.
--- NOTE | 2019-02-02 07:14 | NUR ---
ASSUMED CARE: PT RESTING QUIETLY AT THIS TIME. NO ACUTE NEEDS OR DISTRESS NOTED.
--- NOTE | 2019-02-02 08:22 | NUR ---
NIGHT RN REPORTED THAT PT HAS BEEN REFUSING CARE. SPOKE WITH JOSIANE IN PALLIATIVE CARE AND JOSIANE STATES THEY WILL BE HAVING A MEETING WITH FAMILY THIS AFTERNOON DISCUSSING CARE PLAN.
--- NOTE | 2019-02-02 09:00 | NUR ---
DR LESTER AWARE THAT PT HAS BEEN REFUSING MEDS AND CARE
--- NOTE | 2019-02-02 10:25 | NUR ---
Pt visit this AM. Pt is resting in bed with his eyes closed upon arrival but awakens easily with soft gentle voice. Pt denies pain and dyspnea at this time. Pt is A&Ox2/3. He states he is ICU (currently on medical floor) and is unable to give appropriate reason for hospital stay. Pt appears somnolent and cachetic. Pt reports no concerns at this time. Spoke with bedside nurse Romina and discussed case. Pt refused all his morning medications this AM and did not eat his breakfast. Pt's appetite is significantly decreased. Pt has been refusing repositioning and has pressure ulcers on his coccyx. Pt has colonostomy and Coy Catheter in place. Pt requires assistance with bathing, dressing, and is bedbound. Revewed therapy notes and Pt lacks motivation and requires constant cueing and redirection and has not been out of bed. Spoke with Dr Lindsay and discussed case. Dr Lindsay reports discussion with family regarding hospice as an option is appropriate. Medical History and comorbidities include: Colon Cancer, Afib, COPD, Prostate Cancer, and Diastolic CHF. This Hospitalization Pt has experienced significant GI Bleed and NSTEMI. PPS 30% Karnofsky 40% ADL's 5/6 Albumin 2.1 Pt appears appropriate for hospice if family chooses this option. Will discuss with family when they visit today. Palliative Care will remain available.
--- NOTE | 2019-02-02 15:30 | NUR ---
Pt visit this afternoon. Spoke with Pt's daughter prior to visit regarding goals of care and discussed same information that is given during this visit. Pt is resting in bed upon arrival. Pt's andrzej and son is present during visit. Engaged in therapeutic discussion regarding goals of care. Educated on Pt's clinical picture including symptoms, disease process, and his refusal to take his medciations, refusal to eat, and inability to work with therapy. Discussed hospice as an option. Educated on hospice philosophy. Family reports experiencing hospice with other family members and are agreeable for hospice services. Instructed on hospice agencies to choose from. Family chooses [facility]. No other concerns reported at this time. Spoke with caremanager Salome and reported familiy's decision for [facility]. Palliative Care will remain available.
--- NOTE | 2019-02-02 16:32 | NUR ---
Late Entry from previous visit note. Spoke with Pt's regarding code status. Educated on life sustaining measures including risk factors. Pt's Kait reports she would like Pt's code status to be changed to DNR. Called and spoke with Dr Lindsay. Changed code status to DNR per V/O from Dr Lindsay.
--- NOTE | 2019-02-02 19:13 | NUR ---
SHIFT SUMMARY: PT CHANGED TO DNR WITH PLAN FOR DC HOME ON HOSPICE. CONTINUES TO REFUSE MOST MEDS, AND CARE. MEDICATED FOR PAIN X1 AND CHANGED COCCYX DRESSINGS THIS SHIFT. FAMILY IN AND OUT THIS SHIFT. NO FURTHER NEEDS OR CONCERNS
--- NOTE | 2019-02-03 04:13 | NUR ---
SHIFT SUMMARY PT REFUSED EVENING MEDS EXCEPT TRAMADOL. PT HAD NO ISSUES NOTED THIS SHIFT. PT HAS SLEPT OFF AND ON THIS SHIFT. PT IS PAINFUL THROUGHOUT. PT CURRENTLY AWAKE IN NO DISTRESS. CALL LIGHT IN REACH.
[2019-02-03 05:24] LABS: BASOPHILS ABSOLUTE AUTO 0.03 K/mm3 (0.00-0.23); BASOPHILS PERCENT AUTO 0 % (0-2); EOSINOPHILS ABSOLUTE AUTO 0.03 K/mm3 (0.00-0.68); EOSINOPHILS PERCENT AUTO 0 % (0-6); Hematocrit 32.5 % (37.0-53.0); Hemoglobin 10.6 g/dL (13.5-17.5); IMMATURE GRAN ABSOLUTE AUTO 0.08 K/mm3 (0.00-0.10); IMMATURE GRAN PERCENT AUTO 1 % (0-1); LYMPHOCYTES ABSOLUTE AUTO 2.21 K/mm3 (0.84-5.20); LYMPHOCYTES PERCENT AUTO 20 % (21-46); MONOCYTES ABSOLUTE AUTO 1.04 K/mm3 (0.16-1.47); MONOCYTES PERCENT AUTO 9 % (4-13); Mean Corpuscular HGB 28.1 pg (26.0-34.0); Mean Corpuscular HGB Conc 32.6 g/dL (31.5-36.5); Mean Corpuscular Volume 86 fL (80-100); Mean Platelet Volume 10.5 fL (9.1-12.4); NEUTROPHILS ABSOLUTE AUTO 7.89 K/mm3 (1.96-9.15); NEUTROPHILS PERCENT AUTO 70 % (41-73); Platelet Count 273 K/mm3 (150-400); RDW Coefficient Variation 16.2 % (11.7-14.2); RDW Standard Deviation 50.4 fL (35.1-46.3); Red Blood Cell Count 3.77 M/mm3 (4.30-5.90); White Blood Cell Count 11.28 K/mm3 (4.00-11.30)
--- NOTE | 2019-02-03 07:36 | NUR ---
ASSUMED CARE: PT RESTING QUIETLY AT THIS TIME. NO ACUTE NEEDS OR DISTRESS AT THIS TIME.
[2019-02-03 09:46] LABS: Alanine Aminotransfer (ALT/SGP 14 U/L (12-78); Albumin/Globulin Ratio 0.6 (0.8-1.8); Alk Phos 60 U/L (50-136); Anion Gap 13 mmol/L (6-16); Aspartate Aminotrans (AST/SGOT 16 U/L (12-37); Bilirubin, Total 0.8 mg/dL (0.1-1.0); Blood Urea Nitrogen 12 mg/dL (8-24); Bun/Creatinine Ratio 16.3 (12.0-20.0); CO2, Blood 24 mmol/L (21-32); Chloride, Blood 99 mmol/L (98-108); Creatinine, Blood 0.74 mg/dL (0.60-1.20); Globulin, Blood 3.4 g/dL (2.2-4.0); Glomerular Filtration Rate >60 (60-); Glucose, Blood 87 mg/dL (70-99); Potassium, Blood 3.5 mmol/L (3.5-5.5); Sodium, Blood 136 mmol/L (136-145); Total Protein, Blood 5.4 g/dL (6.4-8.2)
[2019-02-03] MEDS ORDERED: FURO20 PO (11:52)
[2019-02-03] MEDS ORDERED: Nicoderm Cq1 EAC1 TOP (11:53)
[2019-02-03] MEDS ORDERED: POTCHL20ER PO (11:54)
--- NOTE | 2019-02-03 15:23 | NUR ---
PT'S IV DC'D WNL, PT DC'D WITH SUPERVISION DUE TO PT BEING SENSITIVE TO ADHESIVES. TRANSFERRED INTO WHEEL CHAIR WITH LIFT AND ESCORTED OUT BY [facility]. FAMILY AWARE. NO FURTHER NEEDS OR CONCERNS.
== END 2019-02-03 13:34 | disposition hospice, home (50) | DRG 377 ==
LOC: ER 17:27 → MEDS 17:36 → PCU 17:36 → ICUW 17:36 → PCU 18:49 → ICUW 19:29 → PCU 01-22 13:23 → MEDS 01-23 17:51 → PCU 01-23 19:04 → MEDS 01-27 12:44 → ENPENDDIS 02-03 11:28 → MEDS 02-03 13:34
PROVIDERS: Emergency Medicine; Internal Medicine; Internal Medicine Critical Care Medicine; Internal Medicine Gastroenterology; Internal Medicine Pulmonary Disease; ADMIT Internal Medicine
PROC: 02HV33Z Insertion of Infusion Device into Superior Vena Cava, Percutaneous Approach (ICD-10-PCS; 2019-01-18)
PROC: 30233K1 Transfusion of Nonautologous Frozen Plasma into Peripheral Vein, Percutaneous Approach (ICD-10-PCS; 2019-01-18)
PROC: 30233R1 Transfusion of Nonautologous Platelets into Peripheral Vein, Percutaneous Approach (ICD-10-PCS; 2019-01-18)
PROC: 0DJ08ZZ Inspection of Upper Intestinal Tract, Via Natural or Artificial Opening Endoscopic (ICD-10-PCS; 2019-01-18)
PROC: 3E033XZ Introduction of Vasopressor into Peripheral Vein, Percutaneous Approach (ICD-10-PCS; 2019-01-18)
PROC: 30233N1 Transfusion of Nonautologous Red Blood Cells into Peripheral Vein, Percutaneous Approach (ICD-10-PCS; 2019-01-18)
PROC: 0BH17EZ Insertion of Endotracheal Airway into Trachea, Via Natural or Artificial Opening (ICD-10-PCS; principal; 2019-01-18 07:30)
DX: K25.0 Acute gastric ulcer with hemorrhage (principal); E43 Unspecified severe protein-calorie malnutrition; T83.511A Infection and inflammatory reaction due to indwelling urethral catheter, initial encounter; I50.33 Acute on chronic diastolic (congestive) heart failure; J69.0 Pneumonitis due to inhalation of food and vomit; I24.8 Other forms of acute ischemic heart disease; E87.1 Hypo-osmolality and hyponatremia; R64 Cachexia; C20 Malignant neoplasm of rectum; E87.2 Acidosis; T39.011A Poisoning by aspirin, accidental (unintentional), initial encounter; Z51.5 Encounter for palliative care; I10 Essential (primary) hypertension; I25.10 Atherosclerotic heart disease of native coronary artery without angina pectoris; J44.9 Chronic obstructive pulmonary disease, unspecified; E87.6 Hypokalemia; E83.42 Hypomagnesemia; I70.8 Atherosclerosis of other arteries; I73.9 Peripheral vascular disease, unspecified; I11.0 Hypertensive heart disease with heart failure; Z79.01 Long term (current) use of anticoagulants; Z79.82 Long term (current) use of aspirin; E83.51 Hypocalcemia; E55.9 Vitamin D deficiency, unspecified; E78.5 Hyperlipidemia, unspecified; F10.21 Alcohol dependence, in remission; B96.5 Pseudomonas (aeruginosa) (mallei) (pseudomallei) as the cause of diseases classified elsewhere
CPT/HCPCS: 31500; 31720; 36415; 36430; 36556; 36600; 51702; 71045; 74018; 80047; 80048; 80053; 80069; 81001; 82140; 82330; 82803; 82947; 83605; 83735; 83880; 84100; 84132; 84443; 84484; 85014; 85018; 85025; 85384; 85610; 85730; 86850; 86900; 86901; 86920; 86923; 87077; 87086; 87186; 92526; 92610; 93005; 93010; 93308; 94002; 94003; 94640; 94660; 94667; 94668; 94760; 94762; 97110; 97162; 97166; 97530; 97535; 99285; A9270; C1751; C9113; C9132; J0171; J0610; J0696; J0713; J1940; J1956; J2250; J2405; J2704; J2920; J3010; J3475; J3480; J7030; J7040; J7050; J7060; J7120; P9016; P9035; P9041; P9046; P9059